=== PATIENT | female | born 1960 | race Caucasian/White ===

== ENCOUNTER 2020-11-15 10:04 | Outpatient (REF) | payer BC, SELFPAY ==
[2020-11-15 11:34] LABS: Glucose Urine UA NEG (NEG); Leukocyte Esterase Urine NEG (NEG); Nitrite Urine NEG (NEG); PH 5.5 (5.0-8.0); Specific Gravity - Urine >= 1.030 (1.005-1.025); Urine Blood NEG (NEG); Urine Ketones NEG (NEG); Urine Protein NEG (NEG-TRACE)
[2020-11-15 11:39] LABS: Appearance Urine CLEAR; Color Urine YELLOW
[2020-11-15 11:51] LABS: Alanine Aminotransferase 33 U/L (0-31); Albumin Level 4.5 g/dL (3.5-5.0); Alkaline Phosphatase 58 U/L (39-117); Anion Gap 13 (12-20); Aspartate Amino Transferase 24 U/L (5-31); Bilirubin Total 0.6 mg/dL (0.0-1.0); Blood Urea Nitrogen 19 mg/dL (9-16); Calcium 9.2 mg/dL (8.4-10.2); Carbon Dioxide 26 mmol/L (22-29); Chloride 105 mmol/L (96-108); Cholesterol 161 mg/dL; Estimated Glomerular Filt Rate > 60; Glucose Fasting 126 mg/dL (60-99); HDL Cholesterol 42 mg/dL; LDL Cholesterol Calculated 88 mg/dl; Potassium 4.4 mmol/L (3.3-5.1); Sodium 140 mmol/L (135-145); Total Protein 7.4 g/dL (6.5-8.0); Triglycerides 157 mg/dL
[2020-11-15 11:54] LABS: Bacteria Urine TRACE /LPF; RBC Urine 0 /HPF (0); Squamous Epithelial Cell Urine 2+ /LPF; WBC Urine 0-2 /HPF (0-4)
[2020-11-15 12:11] LABS: TSH reflex Free T4 1.44 uIU/mL (0.32-4.0)
[2020-11-15 12:12] LABS: Estimated Average Glucose 140 mg/dL; Hemoglobin A1c % 6.5 %
[2020-11-15 12:26] LABS: Creatinine Urine 65.74 mg/dL; Microalbumin Urine < 5.0 mg/L
== END 2020-11-15 10:05 | disposition home or self-care (01) ==
LOC: HO.HMGCLDS 10:04
PROVIDERS: PCP Internal Medicine; Visit Provider Internal Medicine
DX: E03.9 Hypothyroidism, unspecified (principal); I10 Essential (primary) hypertension; E78.5 Hyperlipidemia, unspecified
CPT/HCPCS: 36415; 80053; 80061; 81001; 82043; 83036; 84443

== ENCOUNTER 2021-10-26 09:21 | Outpatient (REF) | payer BC, SELFPAY ==
[2021-10-26 11:44] LABS: Hematocrit 42.4 % (37.0-47.0); Hemoglobin 13.7 g/dl (12.0-16.0); Mean Corpuscular HGB Conc 32.3 g/dl (31.0-35.0); Mean Corpuscular Hemoglobin 29.4 pg (27.0-33.0); Mean Platelet Volume 12.9 fL (9.4-12.3); Platelet Count 230 X10*3/uL (160-400); Red Blood Count 4.66 X10*6/uL (4.20-5.50); Red Cell Distribution Width 13.1 % (11.0-16.0); White Blood Count 7.8 X10*3/uL (4.8-10.8)
[2021-10-26 11:52] LABS: Appearance Urine HAZY; Color Urine YELLOW; Glucose Urine UA NEG (NEG); Leukocyte Esterase Urine NEG (NEG); Nitrite Urine NEG (NEG); Specific Gravity - Urine >= 1.030 (1.005-1.025); Urine Blood NEG (NEG); Urine Ketones NEG (NEG); Urine Protein NEG (NEG-TRACE)
[2021-10-26 12:01] LABS: Estimated Average Glucose 151 mg/dL; Hemoglobin A1c % 6.9 %
[2021-10-26 12:07] LABS: Bacteria Urine TRACE /LPF; RBC Urine 0 /HPF (0); Squamous Epithelial Cell Urine 2+ /LPF; WBC Urine 0-2 /HPF (0-4)
[2021-10-26 12:08] LABS: Calcium Oxalate Crystals Urine 2+ /LPF
[2021-10-26 12:09] LABS: Creatinine Urine 126.93 mg/dL; Microalbum/Creatinine Ratio Ur 5.5 ug/mg cr
[2021-10-26 12:19] LABS: TSH reflex Free T4 6.67 uIU/mL (0.32-4.0)
[2021-10-26 12:21] LABS: Alanine Aminotransferase 34 U/L (0-31); Albumin Level 4.5 g/dL (3.5-5.0); Alkaline Phosphatase 59 U/L (39-117); Anion Gap 13 (12-20); Aspartate Amino Transferase 26 U/L (5-31); Bilirubin Total 0.7 mg/dL (0.0-1.0); Blood Urea Nitrogen 20 mg/dL (9-16); Carbon Dioxide 23 mmol/L (22-29); Chloride 107 mmol/L (96-108); Estimated Glomerular Filt Rate > 60; Glucose Fasting 145 mg/dL (60-99); Potassium 4.2 mmol/L (3.3-5.1); Sodium 139 mmol/L (135-145); Total Protein 7.8 g/dL (6.5-8.0)
[2021-10-26 14:12] LABS: Free T4 (Free Thyroxine) 1.08 ng/dL (0.71-1.85)
== END 2021-10-26 09:22 | disposition home or self-care (01) ==
LOC: HO.HMGCLDS 09:21
PROVIDERS: Visit Provider Internal Medicine
DX: E03.9 Hypothyroidism, unspecified (principal); E78.5 Hyperlipidemia, unspecified; I10 Essential (primary) hypertension; R73.9 Hyperglycemia, unspecified
CPT/HCPCS: 36415; 80053; 81001; 82043; 83036; 84439; 84443; 85027

== ENCOUNTER 2022-01-04 09:24 | Outpatient (REF) | payer BC, SELFPAY ==
[2022-01-04 11:39] LABS: Estimated Average Glucose 146 mg/dL; Hemoglobin A1c % 6.7 %
[2022-01-04 11:56] LABS: Alanine Aminotransferase 42 U/L (0-31); Albumin Level 4.3 g/dL (3.5-5.0); Alkaline Phosphatase 62 U/L (39-117); Anion Gap 12 (12-20); Aspartate Amino Transferase 28 U/L (5-31); Bilirubin Total 0.5 mg/dL (0.0-1.0); Blood Urea Nitrogen 17 mg/dL (9-16); Calcium 9.7 mg/dL (8.4-10.2); Carbon Dioxide 22 mmol/L (22-29); Chloride 107 mmol/L (96-108); Cholesterol 188 mg/dL; Estimated Glomerular Filt Rate > 60; Glucose Fasting 140 mg/dL (60-99); HDL Cholesterol 39 mg/dL; LDL Cholesterol Calculated 112 mg/dl; Potassium 4.3 mmol/L (3.3-5.1); Sodium 137 mmol/L (135-145); Total Protein 7.5 g/dL (6.5-8.0); Triglycerides 188 mg/dL
[2022-01-04 12:02] LABS: TSH reflex Free T4 2.37 uIU/mL (0.32-4.0)
== END 2022-01-04 09:25 | disposition home or self-care (01) ==
LOC: HO.HMGCLDS 09:24
PROVIDERS: PCP Internal Medicine; Visit Provider Internal Medicine
DX: E03.9 Hypothyroidism, unspecified (principal); R73.9 Hyperglycemia, unspecified
CPT/HCPCS: 36415; 80053; 80061; 83036; 84443

== ENCOUNTER 2022-05-03 09:08 | Outpatient (REF) | payer BC, SELFPAY ==
[2022-05-03 11:43] LABS: Estimated Average Glucose 140 mg/dL; Hemoglobin A1c % 6.5 %
[2022-05-03 12:08] LABS: Alanine Aminotransferase 33 U/L (0-31); Albumin Level 4.6 g/dL (3.5-5.0); Alkaline Phosphatase 60 U/L (39-117); Anion Gap 17 (12-20); Aspartate Amino Transferase 26 U/L (5-31); Bilirubin Total 0.6 mg/dL (0.0-1.0); Blood Urea Nitrogen 24 mg/dL (9-16); Calcium 9.8 mg/dL (8.4-10.2); Carbon Dioxide 22 mmol/L (22-29); Chloride 104 mmol/L (96-108); Cholesterol 192 mg/dL; Estimated Glomerular Filt Rate > 60; Glucose Fasting 135 mg/dL (60-99); HDL Cholesterol 44 mg/dL; LDL Cholesterol Calculated 112 mg/dl; Potassium 4.1 mmol/L (3.3-5.1); Sodium 139 mmol/L (135-145); Total Protein 7.5 g/dL (6.5-8.0); Triglycerides 183 mg/dL
== END 2022-05-03 09:09 | disposition home or self-care (01) ==
LOC: HO.HMGCLDS 09:08
PROVIDERS: PCP Internal Medicine; Visit Provider Internal Medicine
DX: E11.9 Type 2 diabetes mellitus without complications (principal); I10 Essential (primary) hypertension; E78.5 Hyperlipidemia, unspecified
CPT/HCPCS: 36415; 80053; 80061; 83036

== ENCOUNTER 2022-06-09 09:34 | Day surgery (SDC) | payer BC, SELFPAY ==
--- NOTE | 2022-06-08 14:01 | P.CONAN_ITS ---
Documented by User: Michelle Wiggins NP 06/08/22 14:02 HPI - Anesthesia Eval Consult details Narrative: 61yo F for Colonoscopy PMFSH Active Problems Active Problems: All Active Problems (Updated 02/24/22 @ 13:00 by Rocío Eastman MD) DM2 (diabetes mellitus, type 2) (Acute) Encounter for screening colonoscopy (Acute) Normal pelvic exam (Acute) Annual physical exam (Acute) Hyperglycemia (Acute) Hyperlipidemia (Acute) HTN (hypertension) (Acute) Hypothyroidism, unspecified (Acute) Past Medical History Medical History (Updated 06/09/22 @ 09:50 by Lynn Levy, RN) Annual physical exam Diabetes HTN (hypertension) Hyperglycemia Hyperlipidemia Normal pelvic exam Stress incontinence Thyroid disease Family History Family History Mother No problems noted. Surgical History Surgical History H/O colonoscopy Social History Social History Housing: House Alcohol intake: never Patient Tobacco Use Status: Never used Tobacco e-Cigarette/Vaping Use: Never Used Use of substances other than those prescribed or required for medical reasons: No Are you DNR?: No Advance Directives: No Advance Directives Information Provided: Yes Current occupational status: employed Cognitive needs: No Hearing needs: No Vision needs: Yes Meds Allergies Allergy/AdvReac Type Severity Reaction Status Date / Time No Known Allergies Allergy Verified 06/09/22 09:47 Exam Exam Date and Time: June 08, 2022 1401 Pertinent Lab Results Pertinent Lab Results: Laboratory Tests 10/26/21 05/03/22 09:29 09:14 WBC 7.8 Hgb 13.7 Hct 42.4 Plt Count 230 Sodium 139 Potassium 4.1 Chloride 104 Carbon Dioxide 22 BUN 24 H Creatinine 0.83 Assessment and Plan Assessment Anesthesia Assessment: Chart Reviewed Documented by User: Malina Stone MD 06/09/22 09:57 [facility] Past Medical History Medical History (Updated 06/09/22 @ 09:50 by Lynn Levy, RN) Annual physical exam Diabetes HTN (hypertension) Hyperglycemia Hyperlipidemia Normal pelvic exam Stress incontinence Thyroid disease Family History Family History Mother No problems noted. Family history of problems with anesthesia: No Surgical History Surgical History H/O colonoscopy History of Problems with Anesthesia: No Social History Social History Housing: House Alcohol intake: never Patient Tobacco Use Status: Never used Tobacco e-Cigarette/Vaping Use: Never Used Use of substances other than those prescribed or required for medical reasons: No Are you DNR?: No Advance Directives: No Advance Directives Information Provided: Yes Current occupational status: employed Cognitive needs: No Hearing needs: No Vision needs: Yes Meds Allergies Allergy/AdvReac Type Severity Reaction Status Date / Time No Known Allergies Allergy Verified 06/09/22 09:47 Exam Airway Mallampati Class: II TM Dist: >3cm Neck ROM: Full Heart: rrr Lungs: cta Assessment and Plan Assessment Anesthesia Assessment: Anesthesia Plan Discussed Final Anesthetic Review Family History of Problems with Anesthesia: No History of Problems with Anesthesia: No NPO: Yes ASA Class: II Final Preanesthetic Review: No Changes in Pt Med Stat, Meds/Allgs Chart Reviewed and Consent Obtained/Reviewed Patient Risk: Intermediate Procedure Risk: Intermediate Anesthetic Plan Anesthetic Plan: MAC: Disposition: Standard PACU
[2022-06-09 09:40] VITALS: BMI 32.9
[2022-06-09 09:51] VITALS: BP 146/75; PULSE 67; RESP 15; TEMP 36.7; O2SAT 95
--- NOTE | 2022-06-09 10:03 | MHC.SHP ---
Pre-Procedural Eval Section A Date of Service: 06/09/22 The patient is an INPATIENT: No The History & Physical has been completed within 30 days and I have reviewed it.: No Section B Chief Complaint: screening Details of Present Illness: colon cancer screening Relevant Family History (Specify if Yes): No Relevant Social History: None Present Medications: see Short Stay Collaborative assessment Medical History: Significant History (Hyperglycemia Hyperlipidemia Normal pelvic exam Stress incontinence) History of Previous Operations: Relevant previous surgery/procedure and date(s) ( history of colonoscopy) Allergies: Allergies Allergy/AdvReac Type Severity Reaction Status Date / Time No Known Allergies Allergy Verified 06/09/22 09:47 Review of Systems Sugical H&P ROS: Negative: Constitution, Cardiovascular, Respiratory and Gastrointestinal Exam Surgical H&P Exam: Normal: Heart, Normal: Lungs, Normal: Extremities and Normal: Abdomen Plan Diagnosis/Plan: Unchanged I have reviewed the history and physical and performed a pertinent physical examination on my patient. No changes have occurred unless specified.
--- NOTE | 2022-06-09 10:04 | PM.OP ---
Brief Operative Note Date of Service: 06/09/22 Pre-op diagnosis: colon cancer screening Post-op diagnosis: other ( colon polyp, diverticulosis, hemorrhoids) Procedure: COLONOSCOPY TO CECUM WITH SNARE POLYPECTOMY Surgeon: Angela Cruz MD Anesthesia: MAC Was an Manufacturing Engineer Chief used for this Procedure?: Yes Manufacturing Engineer Chief: Giuliano Parker Estimated blood loss (mL): 0 Pathology: other (A- TRANSVERSE COLO POLYP) Condition: stable Disposition: PACU
--- NOTE | 2022-06-09 10:04 | W.PM.OPN ---
Operative Note Operative Note Date of Service: 06/09/22 Narrative: Pre-op diagnosis: colon cancer screening Post-op diagnosis:?other ( colon polyp, diverticulosis, hemorrhoids) Surgeon: Angela Cruz MD Anesthesia:?MAC COLONOSCOPY TILL CECUM WITH SNARE POLYPECTOMY Consent: Indications for the procedure and potential complications of bleeding, perforation, reaction to medications and missed diagnosis were discussed with the patient and informed consent was obtained. Instrument: Olympus PCF H 190 L variable stiffness pediatric colonoscope Monitoring: Vital signs and clinical assessment, intermittent blood pressure monitoring, continuous EKG monitoring, Pulse oximetry and Carbon Dioxide monitoring were done throughout the procedure. Colon withdrawl time was 13 minutes. Procedure: The patient was placed in the left lateral decubitis position and pre-procedure medications were administered. After a digital rectal examination of the ano-rectum, the video colonoscope was inserted into the rectum and advanced through the colon to the cecum. The colonoscope was slowly withdrawn in a retrograde panoramic fashion and the colon mucosa was carefully examined including a retroflexed view of the rectum. Findings and interventions are described below. Procedure Difficulty: Without difficulty Findings: Terminal Ileum: Not evaluated Cecum: Normal Ascending Colon: Normal Transverse Colon: A 5-6 mm sessile polyp - removed with a cold snare Descending Colon: Normal Sigmoid Colon: Moderate diverticulosis Rectum: Normal Ano-rectum: Moderate internal hemorrhoids and perianal skin tags Colon preparation: Good Impression and Post Procedure Diagnosis: Colonoscopy Findings: One small polyp removed Moderate diverticulosis seen in the sigmoid colon Moderate hemorrhoids on retroflexed exam. Plan: Await pathology results Patient has an appointment on 06/22/22 in the [facility] with KIRAN Moya . Repeat Colonoscopy interval based on path results - in 5 years if polyps are adenomatous and 10 years if polyps are hyperplastic. Colon polyps and diverticulosis handouts were given in the discharge area
[2022-06-09 10:07] LABS: Glucose, Whole Blood 135 mg/dL (60-115)
[2022-06-09] MEDS: Lactated Ringers 1,000 ML 100 ML IVCONT (10:25)
[2022-06-09 11:34] VITALS: BP 101/59; PULSE 95; RESP 16; TEMP 36.6; O2SAT 95
[2022-06-09 11:49] VITALS: BP 106/63; PULSE 67; RESP 18; TEMP 37.1; O2SAT 96
== END 2022-06-09 12:36 | disposition home or self-care (01) ==
PROVIDERS: PCP Internal Medicine; Visit Provider Internal Medicine Gastroenterology
PROC: 0DJD8ZZ Inspection of Lower Intestinal Tract, Via Natural or Artificial Opening Endoscopic (ICD-10-PCS; CPT 45378; principal; 2022-06-09 10:10)
DX: Z12.11 Encounter for screening for malignant neoplasm of colon (principal); D12.3 Benign neoplasm of transverse colon; K57.30 Diverticulosis of large intestine without perforation or abscess without bleeding; K64.8 Other hemorrhoids; K64.4 Residual hemorrhoidal skin tags; I10 Essential (primary) hypertension; E78.5 Hyperlipidemia, unspecified; E03.9 Hypothyroidism, unspecified; E11.65 Type 2 diabetes mellitus with hyperglycemia; N39.3 Stress incontinence (female) (male); Z79.84 Long term (current) use of oral hypoglycemic drugs; Z79.899 Other long term (current) drug therapy
CPT/HCPCS: 45385; 82947; 88305

== ENCOUNTER 2022-07-26 09:12 | Outpatient (REF) | payer BC, SELFPAY ==
[2022-07-26 11:49] LABS: Estimated Average Glucose 128 mg/dL; Hemoglobin A1c % 6.1 %
[2022-07-26 12:01] LABS: Alanine Aminotransferase 33 U/L (0-31); Albumin Level 4.5 g/dL (3.5-5.0); Alkaline Phosphatase 63 U/L (39-117); Anion Gap 13 (12-20); Aspartate Amino Transferase 24 U/L (5-31); Bilirubin Total 0.6 mg/dL (0.0-1.0); Blood Urea Nitrogen 19 mg/dL (9-16); Carbon Dioxide 26 mmol/L (22-29); Chloride 103 mmol/L (96-108); Cholesterol 172 mg/dL; Estimated Glomerular Filt Rate > 60; Glucose Fasting 118 mg/dL (60-99); HDL Cholesterol 37 mg/dL; LDL Cholesterol Calculated 97 mg/dl; Potassium 4.2 mmol/L (3.3-5.1); Sodium 138 mmol/L (135-145); Total Protein 7.5 g/dL (6.5-8.0); Triglycerides 192 mg/dL
[2022-07-26 12:11] LABS: Creatinine Urine 130.03 mg/dL; Microalbum/Creatinine Ratio Ur 5.3 ug/mg cr
== END 2022-07-26 09:13 | disposition home or self-care (01) ==
LOC: HO.HMGCLDS 09:12
PROVIDERS: PCP Internal Medicine; Visit Provider Internal Medicine
DX: E11.9 Type 2 diabetes mellitus without complications (principal); E78.5 Hyperlipidemia, unspecified; I10 Essential (primary) hypertension
CPT/HCPCS: 36415; 80053; 80061; 82043; 83036

== ENCOUNTER 2022-10-31 09:48 | Outpatient (REF) | payer BC, SELFPAY ==
[2022-10-31 11:44] LABS: MANUAL DIFF FLAG NO
[2022-10-31 12:01] LABS: Basophils Absolute Auto 0.1 X10*3/uL (0.0-0.2); Basophils Percent Auto 1.1 % (0-2); Eosinophils Absolute Auto 0.2 X10*3/uL (0.0-0.4); Eosinophils Percent Auto 3.2 % (0-4); Hemoglobin 13.3 g/dl (12.0-16.0); Imm Gran Abs Auto 0.01 X10*3/uL (0.00-0.03); Imm Gran Pct Auto 0.1 % (0.0-0.4); Lymphocytes Absolute Auto 2.2 X10*3/uL (1.2-4.9); Lymphocytes Percent Auto 30.6 % (20-40); Mean Corpuscular HGB Conc 32.4 g/dl (31.0-35.0); Mean Corpuscular Hemoglobin 29.4 pg (27.0-33.0); Mean Corpuscular Volume 90.7 fL (80.0-98.0); Mean Platelet Volume 11.9 fL (9.4-12.3); Monocytes Absolute Auto 0.5 X10*3/uL (0.1-1.2); Monocytes Percent Auto 6.2 % (2-11); Neutrophils Absolute Auto 4.3 x10*3/uL (2.0-8.3); Neutrophils Percent Auto 58.8 % (45-73); Platelet Count 234 X10*3/uL (160-400); Red Blood Count 4.52 X10*6/uL (4.20-5.50); Red Cell Distribution Width 12.7 % (11.0-16.0); White Blood Count 7.2 X10*3/uL (4.8-10.8)
[2022-10-31 12:15] LABS: Estimated Average Glucose 134 mg/dL; Hemoglobin A1c % 6.3 %
[2022-10-31 13:10] LABS: Alanine Aminotransferase 35 U/L (0-31); Albumin Level 4.3 g/dL (3.5-5.0); Alkaline Phosphatase 60 U/L (39-117); Anion Gap 15 (12-20); Aspartate Amino Transferase 28 U/L (5-31); Bilirubin Total 0.6 mg/dL (0.0-1.0); Blood Urea Nitrogen 17 mg/dL (9-16); Calcium 9.7 mg/dL (8.4-10.2); Carbon Dioxide 22 mmol/L (22-29); Chloride 107 mmol/L (96-108); Cholesterol 164 mg/dL; Estimated Glomerular Filt Rate > 60; Glucose Fasting 105 mg/dL (60-99); HDL Cholesterol 38 mg/dL; LDL Cholesterol Calculated 92 mg/dl; Potassium 4.4 mmol/L (3.3-5.1); Sodium 140 mmol/L (135-145); Triglycerides 174 mg/dL
[2022-10-31 13:12] LABS: TSH reflex Free T4 2.32 uIU/mL (0.32-4.0)
[2022-10-31 13:23] LABS: Creatinine Urine 107.12 mg/dL; Microalbum/Creatinine Ratio Ur 5.6 ug/mg cr
== END 2022-10-31 09:49 | disposition home or self-care (01) ==
LOC: HO.HMGCLDS 09:48
PROVIDERS: PCP Internal Medicine; Visit Provider Internal Medicine
DX: E03.9 Hypothyroidism, unspecified (principal); E11.9 Type 2 diabetes mellitus without complications; I10 Essential (primary) hypertension
CPT/HCPCS: 36415; 80053; 80061; 82043; 83036; 84443; 85025

== ENCOUNTER 2023-02-08 08:48 | Outpatient (REF) | payer BC, SELFPAY ==
--- NOTE | ~2023-02-08 | US_ITS ---
EXAMINATION: US THYROID CLINICAL INFORMATION: Hypothyroidism, unspecified. COMPARISON: None available. TECHNIQUE: Linear transducer grayscale and color Doppler examination with attention to the region of the thyroid. FINDINGS: SIZE: Measurements of the thyroid lobes and nodules are given in sagittal, anteroposterior and transverse dimensions respectively. Right Thyroid Lobe: 3.6 x 1.1 x 0.9 cm, volume 1.9 mL. Parenchyma: The gland echotexture is heterogeneous. Thyroid vascularity is normal. Left Thyroid Lobe: 3.6 x 1.1 x 1.3 cm, volume 2.7 mL. Parenchyma: The gland echotexture is heterogeneous. Thyroid vascularity is normal. Isthmus: 0.3 cm in maximum AP dimension. No focal thyroid nodule is seen. NODES: Left level 2 cervical lymph node measures 1.0 x 0.5 x 0.7 cm. US/US thyroid IMPRESSION: No significant thyroid nodule. ACR TI-RADS RECOMMENDATION REFERENCE: Ultrasound-guided fine-needle aspiration, followup ultrasound, no further follow up. * TR1 (0 point) and TR2 (2 points): No FNA or follow up. * TR3 (3 points): FNA if more than or equal to 2.5 cm in maximum dimension, followup ultrasound in 1, 3 and 5 years if 1.5 to 2.4 cm in maximum dimension. * TR4 (4-6 points): FNA if more than or equal to 1.5 cm in maximum dimension, followup ultrasound in 1, 2, 3 and 5 years if 1 to 1.4 cm in maximum dimension. * TR5 (more than or equal to 7 points): FNA if more than or equal to 1 cm in maximum dimension, followup ultrasound every year for 5 years if 0.5 to 0.9 cm in maximum dimension. * TR3, TR4 or TR5 nodules that are below the size threshold for followup receive no follow up.
== END 2023-02-08 08:49 | disposition home or self-care (01) ==
LOC: HO.HMGCX 08:48
PROVIDERS: PCP Internal Medicine; Visit Provider Internal Medicine
DX: E03.9 Hypothyroidism, unspecified (principal); E04.9 Nontoxic goiter, unspecified; E11.9 Type 2 diabetes mellitus without complications; E78.5 Hyperlipidemia, unspecified
CPT/HCPCS: 36415; 76536; 80053; 80061; 83036

== ENCOUNTER 2023-02-20 09:49 | Outpatient (AMB) | payer BC, SELFPAY ==
--- NOTE | 2023-02-20 09:52 | A.OFFPC_ITS ---
Vital Signs 02/20/23 09:53 Height 5 ft 4 in Weight 190 lb BMI 32.6 BP 120/68 Blood Pressure Location Rt brachial Position Sitting Pulse 83 Pulse Source Pulse Oximeter Pulse Oximetry (%) 95 Oxygen Delivery Method Room Air Intake Visit Reasons: 4m follow up DM Intake Note: Pt is here today for 4 months follow up visit on labs. Allergies No Known Allergies Allergy (Verified 02/20/23 10:02) Medication List - Last Reconciled 02/20/23 by Rocío Eastman MD blood sugar diagnostic ([employer] Ultra Test strips) 1 QD blood-glucose meter ([employer] Ultra2 Meter) As directed dapagliflozin propanediol (Farxiga) 5 mg PO DAILY fenofibrate 160 mg PO DAILY hydrocortisone-pramoxine 1-1 % (Proctofoam HC) 1 appl [place] DAILY PRN lancets ([employer] Delica Plus Lancet) 1 qd levothyroxine 100 mcg PO DAILY lisinopril 10 mg PO DAILY metformin ER 1,500 mg (2 x 750 mg) PO DAILY methylcellulose (laxative) (Citrucel Sugar Free oral powder) 2 grams PO DAILY PRN Tobacco use date assessed: 10/31/22 Dental Screening Dental Screen Date: 02/20/23 Did you have a dental visit in the last 12 months?: Yes Did you have a dental problem in the last 6 months where you did not have access to dental care?: No Was dental information given to patient?: Patient has dentist HPI 4m follow up DM HPI Details Pt presents for f/u DM2, hyperlipid, HTN, stable on meds. [facility] Medical History (Updated 02/20/23 @ 10:48 by Rocío Eastman MD) Annual physical exam Diabetes HTN (hypertension) Hyperglycemia Hyperlipidemia Normal pelvic exam Stress incontinence Thyroid disease Surgical History H/O colonoscopy Family History Mother No problems noted. Social History Housing: House Alcohol intake: never Patient Tobacco Use Status: Never used Tobacco e-Cigarette/Vaping Use: Never Used Current occupational status: employed Cognitive needs: No Hearing needs: No Vision needs: Yes Questionnaire Thrive Questionnaire Date Thrive assessed: 10/31/22 HAJA-7 AMB Questionnaire HAJA-7 Date HAJA - 7 assessed: 10/31/22 Source: Developed by Drs. Esau Shipman, Dahiana Diaz, Dmitriy Bridges and colleagues, with an educational milton from [employer]. Review of Systems Const All systems reviewed & are unremarkable except as noted in HPI and below Reports no additional complaints Eyes Reports no additional complaints ENT Reports no additional complaints Card Reports no additional complaints Resp Reports no additional complaints GI Reports no additional complaints Reports no additional complaints Physical exam (Primary Care) Vital Signs: Last Vital Signs Pulse 83 02/20/23 09:53 BP 120/68 02/20/23 09:53 Pulse Ox 95 02/20/23 09:53 Oxygen Delivery Method Room Air 02/20/23 09:53 BMI result Body Mass Index 32.6 Tobacco/Smoking Status: Tobacco use Status Tobacco use date assessed 10/31/22 02/20/23 09:54 Patient Tobacco Use Status Never used Tobacco 02/20/23 09:54 e-Cigarette/Vaping Use Never Used 02/20/23 09:54 Thrive Assessment: Date of Thrive Assessment Date Thrive assessed 10/31/22 02/20/23 09:54 Const General: no acute distress HENMT Ears: hearing grossly normal bilaterally Throat: Yes posterior oropharynx normal Eyes General: appearance normal, both eyes and all related structures Neck Neck: Yes no lymphadenopathy and Yes supple Resp Effort & Inspection: normal respiratory effort Auscultation: clear to auscultation bilaterally Cardio Rhythm: regular rhythm Heart sounds: S1 normal heart sound present and S2 normal heart sound present GI Inspection: Yes normal to inspection Palpation (GI): Soft to palpation Percussion: Yes normal to percussion Auscultation: normal bowel sounds Assessment and Plan Assessment & Plan (1) DM2 (diabetes mellitus, type 2): Code(s): E11.9 - Type 2 diabetes mellitus without complications Plan: A1c is 6.2. ADA diet increase exercise weight loss discussed with the patient Farxiga 5 mg daily will be added and patient will continue metformin. She will return in 4 months with a fasting labs (2) Hyperlipidemia: Code(s): E78.5 - Hyperlipidemia, unspecified Plan: Continue current medications (3) Annual physical exam: Code(s): Z00.00 - Encounter for general adult medical examination without abnormal findings (4) HTN (hypertension): Code(s): I10 - Essential (primary) hypertension Plan: Continue lisinopril (5) Hypothyroidism, unspecified: Code(s): E03.9 - Hypothyroidism, unspecified Plan: Continue levothyroxine. Return for physical in 4 months Orders: Orders Comprehensive [place]. Panel Fast 4 Months E11.9 - Type 2 diabetes mellitus without complications, E78.5 - Hyperlipidemia, unspecified, I10 - Essential (primary) hypertension, Z00.00 - Encounter for general adult medical examination without abnormal findings Hemoglobin A1c 4 Months E11.9 - Type 2 diabetes mellitus without complications, E78.5 - Hyperlipidemia, unspecified, I10 - Essential (primary) hypertension, Z00.00 - Encounter for general adult medical examination without abnormal findings Lipid Panel 4 Months E11.9 - Type 2 diabetes mellitus without complications, E78.5 - Hyperlipidemia, unspecified, I10 - Essential (primary) hypertension, Z00.00 - Encounter for general adult medical examination without abnormal findings TSH reflex Free T4 4 Months E11.9 - Type 2 diabetes mellitus without complications, E78.5 - Hyperlipidemia, unspecified, I10 - Essential (primary) hypertension, Z00.00 - Encounter for general adult medical examination without abnormal findings Microalbumin, Random (w Creat) 4 Months E11.9 - Type 2 diabetes mellitus without complications, E78.5 - Hyperlipidemia, unspecified, I10 - Essential (primary) hypertension, Z00.00 - Encounter for general adult medical examination without abnormal findings Medications: New dapagliflozin propanediol (Farxiga) 5 mg PO DAILY 90 tabs 1RF Coding Level of Care Code Est Pt Level 4 (99232) Diagnoses DM2 (diabetes mellitus, type 2) E11.9 Hyperlipidemia E78.5 Annual physical exam Z00.00 HTN (hypertension) I10 Hypothyroidism, unspecified E03.9
[2023-02-20 09:53] VITALS: BP 120/68; PULSE 83; O2SAT 95; BMI 32.6
== END 2023-02-20 10:51 | disposition home or self-care (01) ==
PROVIDERS: Visit Provider Internal Medicine
DX: E11.69 Type 2 diabetes mellitus with other specified complication (principal); I10 Essential (primary) hypertension; E03.9 Hypothyroidism, unspecified; E78.5 Hyperlipidemia, unspecified
CPT/HCPCS: 99214

== ENCOUNTER 2023-06-14 09:35 | Outpatient (REF) | payer BC, SELFPAY ==
[2023-06-14 11:33] LABS: Estimated Average Glucose 137 mg/dL; Hemoglobin A1c % 6.4 % (<6.0)
[2023-06-14 12:02] LABS: Creatinine Urine 75.18 mg/dL; Microalbumin Urine < 5.0 mg/L
[2023-06-14 12:12] LABS: Alanine Aminotransferase 41 U/L (0-31); Albumin Level 4.4 g/dL (3.5-5.0); Alkaline Phosphatase 64 U/L (39-117); Anion Gap 12 (12-20); Aspartate Amino Transferase 37 U/L (5-31); Bilirubin Total 0.7 mg/dL (0.0-1.0); Blood Urea Nitrogen 16 mg/dL (9-16); Calcium 9.5 mg/dL (8.4-10.2); Carbon Dioxide 28 mmol/L (22-29); Chloride 102 mmol/L (96-108); Cholesterol 183 mg/dL (<200); Estimated Glomerular Filt Rate > 60; Glucose Fasting 125 mg/dL (60-99); HDL Cholesterol 42 mg/dL (>40); LDL Cholesterol Calculated 115 mg/dL (<100); Potassium 3.8 mmol/L (3.3-5.1); Sodium 138 mmol/L (135-145); Total Protein 7.6 g/dL (6.5-8.0); Triglycerides 132 mg/dL (<150)
== END 2023-06-14 09:36 | disposition home or self-care (01) ==
LOC: HO.HMGCLDS 09:35
PROVIDERS: PCP Internal Medicine; Visit Provider Internal Medicine
DX: Z00.00 Encounter for general adult medical examination without abnormal findings (principal); E11.9 Type 2 diabetes mellitus without complications; E78.5 Hyperlipidemia, unspecified; I10 Essential (primary) hypertension
CPT/HCPCS: 36415; 80053; 80061; 82043; 82570; 83036; 84443

== ENCOUNTER 2023-06-21 08:14 | Outpatient (AMB) | payer BC, SELFPAY ==
--- NOTE | 2023-06-21 08:17 | MHC.PC.OV ---
Vital Signs 06/21/23 08:20 Height 5 ft 4 in Weight 195 lb BMI 33.5 BP 126/60 Blood Pressure Location Rt brachial Position Sitting Pulse 75 Pulse Source Pulse Oximeter Pulse Oximetry (%) 98 Oxygen Delivery Method Room Air Intake Visit Reasons: PE Allergies No Known Allergies Allergy (Verified 06/21/23 08:20) Medication List - Last Reconciled 06/21/23 by Rocío Eastman MD blood sugar diagnostic ([employer] Ultra Test strips) 1 QD blood-glucose meter ([employer] Ultra2 Meter) As directed dapagliflozin propanediol (Farxiga) 5 mg PO DAILY Farxiga (dapagliflozin propanediol) 10 mg PO DAILY NS fenofibrate 160 mg PO DAILY hydrocortisone-pramoxine 1-1 % (Proctofoam HC) 1 appl [place] DAILY PRN lancets ([employer] Delica Plus Lancet) 1 qd levothyroxine 100 mcg PO DAILY lisinopril 10 mg PO DAILY metformin ER 1,500 mg (2 x 750 mg) PO DAILY methylcellulose (laxative) ([employer] Sugar Free oral powder) 2 grams PO DAILY PRN Tobacco use date assessed: 10/31/22 Dental Screening Dental Screen Date: 06/21/23 Did you have a dental visit in the last 12 months?: Yes Did you have a dental problem in the last 6 months where you did not have access to dental care?: No Was dental information given to patient?: Patient has dentist HPI PE HPI Details Pt presents for PE. PFSH Medical History Diabetes Thyroid disease HTN (hypertension) Normal pelvic exam Annual physical exam Hyperglycemia Stress incontinence Hyperlipidemia Surgical History H/O colonoscopy Family History Mother No problems noted. Social History Housing: House Alcohol intake: never Patient Tobacco Use Status: Never used Tobacco e-Cigarette/Vaping Use: Never Used Current occupational status: employed Cognitive needs: No Hearing needs: No Vision needs: Yes Questionnaire Thrive Questionnaire Date Thrive assessed: 10/31/22 AUDIT C Alcohol Use Questionnaire (AUDIT-C) 1. How often do you have a drink containing alcohol?: Never 3. How often do you have six or more drinks on one occasion?: Never Total Score: 0 Score Reviewed/Action Taken: No HAJA-7 AMB Questionnaire HAJA-7 Date HAJA - 7 assessed: 10/31/22 Source: Developed by Drs. Esau Shipman, Dahiana Diaz, Dmitriy Bridges and colleagues, with an educational milton from [employer]. Review of Systems Const All systems reviewed & are unremarkable except as noted in HPI and below Reports no additional complaints Eyes Reports no additional complaints ENT Reports no additional complaints Card Reports no additional complaints Resp Reports no additional complaints GI Reports no additional complaints Reports no additional complaints Physical exam (Primary Care) Vital Signs: Last Vital Signs Pulse 75 06/21/23 08:20 BP 126/60 06/21/23 08:20 Pulse Ox 98 06/21/23 08:20 Oxygen Delivery Method Room Air 06/21/23 08:20 BMI result Body Mass Index 33.5 Tobacco/Smoking Status: Tobacco use Status Tobacco use date assessed 10/31/22 06/21/23 08:19 Patient Tobacco Use Status Never used Tobacco 06/21/23 08:19 e-Cigarette/Vaping Use Never Used 06/21/23 08:19 Thrive Assessment: Date of Thrive Assessment Date Thrive assessed 10/31/22 06/21/23 08:19 Const General: no acute distress HENMT Head: Yes normal to inspection Ears: hearing grossly normal bilaterally Face and sinus: Yes normal facial exam Throat: Yes posterior oropharynx normal Eyes General: appearance normal, both eyes and all related structures Neck Neck: Yes no lymphadenopathy and Yes supple Resp Effort & Inspection: normal respiratory effort Auscultation: clear to auscultation bilaterally Cardio Rhythm: regular rhythm Heart sounds: S1 normal heart sound present and S2 normal heart sound present GI Inspection: Yes normal to inspection Palpation (GI): Soft to palpation Percussion: Yes normal to percussion Auscultation: normal bowel sounds Extrem General: Yes no clubbing, cyanosis or edema Assessment and Plan Assessment & Plan (1) Hypothyroidism, unspecified: Code(s): E03.9 - Hypothyroidism, unspecified Plan: Continue levothyroxine (2) HTN (hypertension): Code(s): I10 - Essential (primary) hypertension Plan: Continue current medications (3) DM2 (diabetes mellitus, type 2): Code(s): E11.9 - Type 2 diabetes mellitus without complications Plan: A1c is 6.4, ADA diet increase exercise loss discussed with the patient increase Farxiga to 10 mg a day follow-up in 4 months with a fasting labs before (4) Annual physical exam: Code(s): Z00.00 - Encounter for general adult medical examination without abnormal findings Plan: Well-balanced diet regular exercise and weight loss discussed with the patient. she is up-to-date with mammogram and colonoscopy (5) Normal pelvic exam: Comment: 11/2018, 06/27 Code(s): Z01.419 - Encounter for gynecological examination (general) (routine) without abnormal findings Orders: Orders Lipid Panel 4 Months E03.9 - Hypothyroidism, unspecified, E11.9 - Type 2 diabetes mellitus without complications, I10 - Essential (primary) hypertension, Z00.00 - Encounter for general adult medical examination without abnormal findings, Z01.419 - Encounter for gynecological examination (general) (routine) without abnormal findings Comprehensive [place]. Panel Fast 4 Months E03.9 - Hypothyroidism, unspecified, E11.9 - Type 2 diabetes mellitus without complications, I10 - Essential (primary) hypertension, Z00.00 - Encounter for general adult medical examination without abnormal findings, Z01.419 - Encounter for gynecological examination (general) (routine) without abnormal findings Microalbumin, Random (w Creat) 4 Months E03.9 - Hypothyroidism, unspecified, E11.9 - Type 2 diabetes mellitus without complications, I10 - Essential (primary) hypertension, Z00.00 - Encounter for general adult medical examination without abnormal findings, Z01.419 - Encounter for gynecological examination (general) (routine) without abnormal findings Hemoglobin A1c 4 Months E03.9 - Hypothyroidism, unspecified, E11.9 - Type 2 diabetes mellitus without complications, I10 - Essential (primary) hypertension, Z00.00 - Encounter for general adult medical examination without abnormal findings, Z01.419 - Encounter for gynecological examination (general) (routine) without abnormal findings TSH reflex Free T4 4 Months E03.9 - Hypothyroidism, unspecified, E11.9 - Type 2 diabetes mellitus without complications, I10 - Essential (primary) hypertension, Z00.00 - Encounter for general adult medical examination without abnormal findings, Z01.419 - Encounter for gynecological examination (general) (routine) without abnormal findings Medications: New Farxiga (dapagliflozin propanediol) 10 mg PO DAILY 90 tabs 3RF NS Discontinued dapagliflozin propanediol (Farxiga) Discontinued Reason: Doctor's Order 5 mg PO DAILY 90 tabs 1RF Coding Level of Care Code Est Pt Prev Care 40-64y(80357) Diagnoses Hypothyroidism, unspecified E03.9 HTN (hypertension) I10 DM2 (diabetes mellitus, type 2) E11.9 Annual physical exam Z00.00 Normal pelvic exam Z01.419
[2023-06-21 08:20] VITALS: BP 126/60; PULSE 75; O2SAT 98; BMI 33.5
== END 2023-06-21 08:51 | disposition home or self-care (01) ==
LOC: HO.HMGC 08:14
PROVIDERS: PCP Internal Medicine; Visit Provider Internal Medicine
DX: E03.9 Hypothyroidism, unspecified (principal); I10 Essential (primary) hypertension; E11.9 Type 2 diabetes mellitus without complications; Z00.00 Encounter for general adult medical examination without abnormal findings; Z01.419 Encounter for gynecological examination (general) (routine) without abnormal findings
CPT/HCPCS: 99396

== ENCOUNTER 2023-10-18 10:01 | Outpatient (REF) | payer BC, SELFPAY ==
[2023-10-18 13:40] LABS: Estimated Average Glucose 146 mg/dL; Hemoglobin A1c % 6.7 % (<6.0)
[2023-10-18 13:54] LABS: Alanine Aminotransferase 32 U/L (0-31); Albumin Level 4.4 g/dL (3.5-5.0); Alkaline Phosphatase 66 U/L (39-117); Anion Gap 15 (12-20); Aspartate Amino Transferase 28 U/L (5-31); Bilirubin Total 0.5 mg/dL (0.0-1.0); Blood Urea Nitrogen 21 mg/dL (9-16); Calcium 9.8 mg/dL (8.4-10.2); Carbon Dioxide 23 mmol/L (22-29); Chloride 106 mmol/L (96-108); Cholesterol 187 mg/dL (<200); Estimated Glomerular Filt Rate > 60; Glucose Fasting 130 mg/dL (60-99); HDL Cholesterol 43 mg/dL (>40); LDL Cholesterol Calculated 116 mg/dL (<100); Potassium 4.2 mmol/L (3.3-5.1); Sodium 140 mmol/L (135-145); Total Protein 7.7 g/dL (6.5-8.0); Triglycerides 142 mg/dL (<150)
[2023-10-18 14:05] LABS: Creatinine Urine 77.31 mg/dL; Microalbumin Urine < 5.0 mg/L
[2023-10-18 14:12] LABS: TSH reflex Free T4 5.38 uIU/mL (0.32-4.0)
[2023-10-18 14:45] LABS: Free T4 (Free Thyroxine) 1.02 ng/dL (0.71-1.85)
== END 2023-10-18 10:02 | disposition home or self-care (01) ==
LOC: HO.HMGCLDS 10:01
PROVIDERS: PCP Internal Medicine; Visit Provider Internal Medicine
DX: Z00.00 Encounter for general adult medical examination without abnormal findings (principal); E11.9 Type 2 diabetes mellitus without complications; E03.9 Hypothyroidism, unspecified; I10 Essential (primary) hypertension
CPT/HCPCS: 36415; 80053; 80061; 82043; 82570; 83036; 84439; 84443

== ENCOUNTER 2023-10-25 07:34 | Outpatient (AMB) | payer BC, SELFPAY ==
--- NOTE | 2023-10-25 07:47 | MHC.PC.OV ---
Vital Signs 10/25/23 07:50 Height 5 ft 4 in Weight 193 lb BMI 33.1 BP 124/70 Blood Pressure Location Lt brachial Position Sitting Pulse 66 Pulse Source Pulse Oximeter Pulse Oximetry (%) 95 Oxygen Delivery Method Room Air Intake Visit Reasons: 4 month fu Intake Note: Pt is here today for her 4mo. f/u Allergies No Known Allergies Allergy (Verified 10/25/23 07:50) Medication List - Last Reconciled 10/25/23 by Rocío Eastman MD blood sugar diagnostic (CoinEx.pwTouch Ultra Test strips) 1 QD blood-glucose meter (Expediciones.mxuch Ultra2 Meter) As directed Farxiga (dapagliflozin propanediol) 10 mg PO DAILY NS fenofibrate 160 mg PO DAILY lancets (OneTouch Delica Plus Lancet) 1 qd levothyroxine 112 mcg PO DAILY lisinopril 10 mg PO DAILY metformin ER 1,500 mg (2 x 750 mg) PO DAILY methylcellulose (laxative) (Citrucel Sugar Free oral powder) 2 grams PO DAILY PRN Tobacco use date assessed: 10/25/23 Dental Screening Dental Screen Date: 10/25/23 Did you have a dental visit in the last 12 months?: Yes Did you have a dental problem in the last 6 months where you did not have access to dental care?: No Was dental information given to patient?: Patient has dentist HPI 4 month fu HPI Details Pt presents for f/u for DM 2, HTN, hyperlipid, hypothyroid, stable on meds. Patient has not been taking metformin regularly and has not been compliant with ADA diet. She has not been checking her blood glucose regularly. Patient is going to [place] for 1 month in January [facility] Medical History Diabetes Thyroid disease HTN (hypertension) Normal pelvic exam Annual physical exam Hyperglycemia Stress incontinence Hyperlipidemia Surgical History H/O colonoscopy Family History Mother No problems noted. Social History Housing: House Alcohol intake: never Patient Tobacco Use Status: Never used Tobacco e-Cigarette/Vaping Use: Never Used Current occupational status: employed Cognitive needs: No Hearing needs: No Vision needs: Yes Questionnaire PHQ-9 Over the last 2 weeks, how often have you been bothered by any of the following problems? 1. Little interest or pleasure in doing things: several days 2. Feeling down, depressed, or hopeless: not at all 3. Trouble falling or staying asleep, or sleeping too much: not at all 4. Feeling tired or having little energy: several days 5. Poor appetite or overeating: not at all 6. Feeling bad about yourself - or that you are a failure or have let yourself or your family down: not at all 7. Trouble concentrating on things, such as reading the newspaper or watching television: not at all 8. Moving or speaking so slowly that other people could have noticed. Or the opposite - being so fidgety or restless that you have been moving around a lot more than usual: not at all 9. Thoughts that you would be better off or of hurting yourself in some way: not at all Total score: 2 Depression Screening Interpretation: Negative Depression Screening Done: Yes Source: Developed by Drs. Esau Shipman, Dahiana Diaz, Dmitriy Bridges and colleagues, with an educational milton from [employer]. Thrive Questionnaire Date Thrive assessed: 10/25/23 I am a: Patient What is your living situation today?: I have a steady place to live Within the past 12 months, did the food you bought not last and you didn't have the money to get more?: Never true Within the past 12 months, did you worry whether your food would run out before you got money to buy more?: Never true Do you have trouble paying for medicines?: No Do you have trouble getting transportation to medical appointments?: No Do you have trouble paying your heating and electricity bill?: No Do you have trouble taking care of your child, family member or friend?: No Do you have trouble with day-to-day activities such as bathing, preparing meals, shopping, managing finances, etc.?: No Are you currently unemployed and looking for a job?: No Are you interested in more education?: No THRIVE Score: 0 AUDIT C Alcohol Use Questionnaire (AUDIT-C) 1. How often do you have a drink containing alcohol?: Never Total Score: 0 HAJA-7 AMB Questionnaire HAJA-7 Date HAJA - 7 assessed: 10/25/23 Feeling nervous, anxious, or on edge: 0 = Not at all Not being able to stop or control worryin = Not at all Worrying too much about different things: 1 = Several days Trouble relaxin = Several days Being so restless that it is hard to sit still: 1 = Several days Becoming easily annoyed or irritable: 0 = Not at all Feeling afraid as if something awful might happen: 0 = Not at all Total HAJA-7 score (0-4 normal; 5-9 mild; 10-14 moderate; 15-21 severe): 3 Source: Developed by Drs. Esau Shipman, Dahiana Diaz, Dmitriy Bridges and colleagues, with an educational miltno from [employer]. Review of Systems Const All systems reviewed & are unremarkable except as noted in HPI and below Reports no additional complaints Eyes Reports no additional complaints ENT Reports no additional complaints Card Reports no additional complaints Resp Reports no additional complaints GI Reports no additional complaints Reports no additional complaints Physical exam (Primary Care) Vital Signs: Last Vital Signs Pulse 66 10/25/23 07:50 BP 124/70 10/25/23 07:50 Pulse Ox 95 10/25/23 07:50 Oxygen Delivery Method Room Air 10/25/23 07:50 BMI result Body Mass Index 33.1 Tobacco/Smoking Status: Tobacco use Status Tobacco use date assessed 10/25/23 10/25/23 07:52 Patient Tobacco Use Status Never used Tobacco 10/25/23 07:49 e-Cigarette/Vaping Use Never Used 10/25/23 07:49 PHQ-9: PHQ-9 Score PHQ-9: Total score 2 10/25/23 07:56 Depression Screening Interpretation: Negative Thrive Assessment: Date of Thrive Assessment Date Thrive assessed 10/25/23 10/25/23 07:56 Const General: no acute distress HENMT Head: Yes normal to inspection Ears: hearing grossly normal bilaterally Face and sinus: Yes normal facial exam Mouth: Normal oral and palatal mucosa present Throat: Yes posterior oropharynx normal Eyes General: appearance normal, both eyes and all related structures Neck Neck: Yes no lymphadenopathy and Yes supple Resp Effort & Inspection: normal respiratory effort Auscultation: clear to auscultation bilaterally Cardio Rhythm: regular rhythm Heart sounds: S1 normal heart sound present and S2 normal heart sound present GI Inspection: Yes normal to inspection Palpation (GI): Soft to palpation Percussion: Yes normal to percussion Auscultation: normal bowel sounds Assessment and Plan Assessment & Plan (1) Hypothyroidism, unspecified: Code(s): E03.9 - Hypothyroidism, unspecified Plan: increase Levothyroxine 112 mcg, recheck TSH (2) DM2 (diabetes mellitus, type 2): Code(s): E11.9 - Type 2 diabetes mellitus without complications Plan: A1C is 6.7, ADA DIET INCREASE PHYSICAL ACTIVITY MEDICATION COMPLIANCE DISCUSSED WITH THE PATIENT. Patient was advised to try GLP 1 receptor agonist BUT SHE DECLINED. She will FOLLOW-UP IN 4 MONTHS WITH FASTING LABS BEFORE (3) Hyperlipidemia: Code(s): E78.5 - Hyperlipidemia, unspecified Plan: Continue fenofibrate (4) Tubular adenoma: Comment: 06/27 1 polyp, recheck in 5 yrs Code(s): D36.9 - Benign neoplasm, unspecified site Orders: Orders Lipid Panel 4 Months D36.9 - Benign neoplasm, unspecified site, E03.9 - Hypothyroidism, unspecified, E11.9 - Type 2 diabetes mellitus without complications, E78.5 - Hyperlipidemia, unspecified Complete Blood Count Auto Diff 4 Months D36.9 - Benign neoplasm, unspecified site, E03.9 - Hypothyroidism, unspecified, E11.9 - Type 2 diabetes mellitus without complications, E78.5 - Hyperlipidemia, unspecified TSH reflex Free T4 4 Months D36.9 - Benign neoplasm, unspecified site, E03.9 - Hypothyroidism, unspecified, E11.9 - Type 2 diabetes mellitus without complications, E78.5 - Hyperlipidemia, unspecified Comprehensive [place]. Panel Fast 4 Months D36.9 - Benign neoplasm, unspecified site, E03.9 - Hypothyroidism, unspecified, E11.9 - Type 2 diabetes mellitus without complications, E78.5 - Hyperlipidemia, unspecified Hemoglobin A1c 4 Months D36.9 - Benign neoplasm, unspecified site, E03.9 - Hypothyroidism, unspecified, E11.9 - Type 2 diabetes mellitus without complications, E78.5 - Hyperlipidemia, unspecified Microalbumin, Random (w Creat) 4 Months D36.9 - Benign neoplasm, unspecified site, E03.9 - Hypothyroidism, unspecified, E11.9 - Type 2 diabetes mellitus without complications, E78.5 - Hyperlipidemia, unspecified Medications: New levothyroxine 112 mcg PO DAILY 90 tabs 2RF Discontinued levothyroxine Discontinued Reason: Doctor's Order 100 mcg PO DAILY 90 tabs 3RF Coding Level of Care Code Est Pt Level 4 (92755) Diagnoses Hypothyroidism, unspecified E03.9 DM2 (diabetes mellitus, type 2) E11.9 Hyperlipidemia E78.5 Tubular adenoma D36.9
[2023-10-25 07:50] VITALS: BP 124/70; PULSE 66; O2SAT 95; BMI 33.1
== END 2023-10-25 08:32 | disposition home or self-care (01) ==
PROVIDERS: PCP Internal Medicine; Visit Provider Internal Medicine
DX: E03.9 Hypothyroidism, unspecified (principal); E11.9 Type 2 diabetes mellitus without complications; E78.5 Hyperlipidemia, unspecified; D36.9 Benign neoplasm, unspecified site
CPT/HCPCS: 99214

== ENCOUNTER 2024-01-01 08:53 | Outpatient (AMB) | payer BC, SELFPAY ==
--- NOTE | 2024-01-01 10:02 | MHC.OFFWIV ---
Intake Vital Signs 01/01/24 10:03 Height 5 ft 4 in Weight 188 lb BMI 32.3 BP 140/72 H Blood Pressure Location Lt brachial Position Sitting Pulse 72 Pulse Source Pulse Oximeter Temp 97.9 F Temp Source Temporal Artery Scan Pulse Oximetry (%) 97 Oxygen Delivery Method Room Air Intake Visit Reasons: EST/ ear pain/ congestion (lobby masked) Intake Note: pt is here today for ear pain congestion started 1 week ago Patient Tobacco Use Status: Never used Tobacco Allergies No Known Allergies Allergy (Verified 01/01/24 10:17) Medication List - Last Reconciled 01/01/24 by Rome Roberts MD blood sugar diagnostic ([employer] Observeruch Ultra Test strips) 1 QD blood-glucose meter ([employer]uch Ultra2 Meter) As directed Farxiga (dapagliflozin propanediol) 10 mg PO DAILY NS fenofibrate 160 mg PO DAILY lancets ([employer] Delica Plus Lancet) 1 qd levothyroxine 112 mcg PO DAILY lisinopril 10 mg PO DAILY metformin ER 1,500 mg (2 x 750 mg) PO DAILY methylcellulose (laxative) (Citrucel Sugar Free oral powder) 2 grams PO DAILY PRN Do you need a note to return to daycare/school/sports/work: No HPI EST/ ear pain/ congestion (lobby masked) HPI Details Patient presents for a sick visit. Reporting symptoms of sinus congestion, sore throat and difficulty swallowing. Low-grade fever. No family member is sick. No recent travel. Patient reports symptoms of malaise and fatigue. [facility] Medical History Diabetes Thyroid disease HTN (hypertension) Normal pelvic exam Annual physical exam Hyperglycemia Stress incontinence Hyperlipidemia Surgical History H/O colonoscopy Family History Mother No problems noted. Social History Housing: House Alcohol intake: never Patient Tobacco Use Status: Never used Tobacco e-Cigarette/Vaping Use: Never Used Current occupational status: employed Cognitive needs: No Hearing needs: No Vision needs: Yes Physical Exam Vital Signs: Last Vital Signs Temp 97.9 F 01/01/24 10:03 Pulse 72 01/01/24 10:03 BP 140/72 H 01/01/24 10:03 Pulse Ox 97 01/01/24 10:03 Oxygen Delivery Method Room Air 01/01/24 10:03 BMI result Body Mass Index 32.3 Const General: cooperative and healthy appearing Nutritional Appearance: well nourished Orientation/consciousness: patient oriented x3 Limitations: no limitations HEENT Head: Yes normal to inspection Eyes General: appearance normal, both eyes and all related structures Neck Neck: Yes normal visual inspection Chest Chest palpation & inspection: normal palpation of entire chest wall Resp Effort & Inspection: normal respiratory effort Neuro General: patient oriented x3 Assessment & Plan Assessment & Plan (1) Upper respiratory tract infection: Code(s): J06.9 - Acute upper respiratory infection, unspecified Plan: Antibiotics ordered. Increase fluid intake. Tylenol for aches and pains. If symptoms worsen, follow-up here for a recheck. Coding Level of Care Code Est Pt Level 3 (12521) Diagnoses Upper respiratory tract infection J06.9
[2024-01-01 10:03] VITALS: BP 140/72; PULSE 72; TEMP 36.6; O2SAT 97; BMI 32.3
== END 2024-01-01 10:56 | disposition home or self-care (01) ==
PROVIDERS: PCP Internal Medicine; Visit Provider Internal Medicine
DX: J06.9 Acute upper respiratory infection, unspecified (principal)
CPT/HCPCS: 99213

== ENCOUNTER 2024-02-05 08:25 | Outpatient (AMB) | payer BC, SELFPAY ==
--- NOTE | 2024-02-05 08:26 | A.OFFPC_ITS ---
Vital Signs 02/05/24 08:27 Height 5 ft 4 in Weight 186 lb BMI 31.9 BP 124/70 Blood Pressure Location Lt brachial Position Sitting Pulse 76 Pulse Source Pulse Oximeter Pulse Oximetry (%) 98 Oxygen Delivery Method Room Air Intake Visit Reasons: 3M F/U Intake Note: Pt is here today for 3 months follow up visit. Allergies No Known Allergies Allergy (Verified 02/05/24 08:28) Medication List - Last Reconciled 02/05/24 by Rocío Eastman MD blood sugar diagnostic (Abacuz LimitedTouch Ultra Test strips) 1 QD blood-glucose meter ([employer] Ultra2 Meter) As directed Farxiga (dapagliflozin propanediol) 10 mg PO DAILY NS fenofibrate 160 mg PO DAILY lancets (OneTouch Delica Plus Lancet) 1 qd levothyroxine 112 mcg PO DAILY lisinopril 10 mg PO DAILY metformin ER 1,500 mg (2 x 750 mg) PO DAILY methylcellulose (laxative) (Citrucel Sugar Free oral powder) 2 grams PO DAILY PRN Tobacco use date assessed: 02/05/24 Fall risk assessment: No Falls in past year Last assessed Fall Risk: 02/05/24 Dental Screening Dental Screen Date: 10/25/23 HPI 3M F/U HPI Details Patient presents for the follow-up on hypertension hyperlipidemia hypothyroidism and type 2 diabetes. [facility] Medical History Diabetes Thyroid disease HTN (hypertension) Normal pelvic exam Annual physical exam Hyperglycemia Stress incontinence Hyperlipidemia Surgical History H/O colonoscopy Family History Mother No problems noted. Social History Housing: House Alcohol intake: never Patient Tobacco Use Status: Never used Tobacco e-Cigarette/Vaping Use: Never Used service: No Current occupational status: employed Cognitive needs: No Hearing needs: No Vision needs: Yes Questionnaire Thrive Questionnaire Date Thrive assessed: 10/25/23 AHJA-7 AMB Questionnaire HAJA-7 Date HAJA - 7 assessed: 10/25/23 Source: Developed by Drs. Esau Shipman, Dahiana B.W. Dmitriy Diaz and colleagues, with an educational milton from [employer]. Review of Systems Const All systems reviewed & are unremarkable except as noted in HPI and below Eyes Reports no additional complaints ENT Reports no additional complaints Card Reports no additional complaints Resp Reports no additional complaints GI Reports no additional complaints Physical exam (Primary Care) Vital Signs: Last Vital Signs Pulse 76 02/05/24 08:27 BP 124/70 02/05/24 08:27 Pulse Ox 98 02/05/24 08:27 Oxygen Delivery Method Room Air 02/05/24 08:27 BMI result Body Mass Index 31.9 Tobacco/Smoking Status: Tobacco use Status Tobacco use date assessed 02/05/24 02/05/24 08:30 Patient Tobacco Use Status Never used Tobacco 02/05/24 08:30 e-Cigarette/Vaping Use Never Used 02/05/24 08:30 Thrive Assessment: Date of Thrive Assessment Date Thrive assessed 10/25/23 02/05/24 08:30 Const General: no acute distress HENMT Face and sinus: Yes normal facial exam Resp Effort & Inspection: normal respiratory effort Auscultation: clear to auscultation bilaterally Cardio Rhythm: regular rhythm Heart sounds: S1 normal heart sound present and S2 normal heart sound present GI Inspection: Yes normal to inspection Palpation (GI): Soft to palpation Percussion: Yes normal to percussion Auscultation: normal bowel sounds Assessment and Plan Assessment & Plan (1) HTN (hypertension): Code(s): I10 - Essential (primary) hypertension Plan: Continue current medications (2) Hypothyroidism, unspecified: Code(s): E03.9 - Hypothyroidism, unspecified Plan: Continue levothyroxine (3) DM2 (diabetes mellitus, type 2): Code(s): E11.9 - Type 2 diabetes mellitus without complications Plan: ADA diet regular physical activity discussed with the patient she will have A1c today and in 3 months. Patient will continue the same medications (4) Hyperlipidemia: Code(s): E78.5 - Hyperlipidemia, unspecified Plan: Continue fenofibrate Orders: Orders Hemoglobin A1c 3 Months E11.9 - Type 2 diabetes mellitus without complications, E78.5 - Hyperlipidemia, unspecified, I10 - Essential (primary) hypertension Comprehensive [place]. Panel Fast 3 Months E11.9 - Type 2 diabetes mellitus without complications, E78.5 - Hyperlipidemia, unspecified, I10 - Essential (primary) hypertension Lipid Panel 3 Months E11.9 - Type 2 diabetes mellitus without complications, E78.5 - Hyperlipidemia, unspecified, I10 - Essential (primary) hypertension Microalbumin, Random (w Creat) 3 Months E11.9 - Type 2 diabetes mellitus without complications, E78.5 - Hyperlipidemia, unspecified, I10 - Essential (primary) hypertension Coding Level of Care Code Est Pt Level 4 (49762) Diagnoses HTN (hypertension) I10 Hypothyroidism, unspecified E03.9 DM2 (diabetes mellitus, type 2) E11.9 Hyperlipidemia E78.5
[2024-02-05 08:27] VITALS: BP 124/70; PULSE 76; O2SAT 98; BMI 31.9
== END 2024-02-05 08:47 | disposition home or self-care (01) ==
PROVIDERS: PCP Internal Medicine; Visit Provider Internal Medicine
DX: I10 Essential (primary) hypertension (principal); E03.9 Hypothyroidism, unspecified; E11.9 Type 2 diabetes mellitus without complications; E78.5 Hyperlipidemia, unspecified
CPT/HCPCS: 99214

== ENCOUNTER 2024-02-05 08:48 | Outpatient (REF) | payer BC, SELFPAY ==
[2024-02-05 10:46] LABS: MANUAL DIFF FLAG NO
[2024-02-05 11:22] LABS: Basophils Absolute Auto 0.1 X10*3/uL (0.0-0.2); Basophils Percent Auto 0.7 % (0-2); Eosinophils Absolute Auto 0.2 X10*3/uL (0.0-0.4); Eosinophils Percent Auto 3.1 % (0-4); Hematocrit 43.9 % (37.0-47.0); Hemoglobin 14.6 g/dl (12.0-16.0); Imm Gran Abs Auto 0.03 X10*3/uL (0.00-0.03); Imm Gran Pct Auto 0.4 % (0.0-0.4); Lymphocytes Absolute Auto 2.6 X10*3/uL (1.2-4.9); Mean Corpuscular HGB Conc 33.3 g/dl (31.0-35.0); Mean Corpuscular Hemoglobin 29.9 pg (27.0-33.0); Mean Platelet Volume 12.1 fL (9.4-12.3); Monocytes Absolute Auto 0.4 X10*3/uL (0.1-1.2); Monocytes Percent Auto 6.5 % (2-11); Neutrophils Absolute Auto 3.5 x10*3/uL (2.0-8.3); Neutrophils Percent Auto 51.3 % (45-73); Platelet Count 227 X10*3/uL (160-400); Red Blood Count 4.88 X10*6/uL (4.20-5.50); Red Cell Distribution Width 13.7 % (11.0-16.0); White Blood Count 6.8 X10*3/uL (4.8-10.8)
[2024-02-05 11:46] LABS: Alanine Aminotransferase 34 U/L (0-31); Albumin Level 4.3 g/dL (3.5-5.0); Alkaline Phosphatase 61 U/L (39-117); Anion Gap 13 (12-20); Aspartate Amino Transferase 29 U/L (5-31); Bilirubin Total 0.8 mg/dL (0.0-1.0); Blood Urea Nitrogen 14 mg/dL (9-16); Calcium 9.6 mg/dL (8.4-10.2); Carbon Dioxide 23 mmol/L (22-29); Chloride 107 mmol/L (96-108); Cholesterol 177 mg/dL (<200); Estimated Glomerular Filt Rate > 60; Glucose Fasting 104 mg/dL (60-99); HDL Cholesterol 41 mg/dL (>40); LDL Cholesterol Calculated 101 mg/dL (<100); Potassium 4.1 mmol/L (3.3-5.1); Sodium 139 mmol/L (135-145); Total Protein 7.5 g/dL (6.5-8.0); Triglycerides 175 mg/dL (<150)
[2024-02-05 11:58] LABS: Estimated Average Glucose 143 mg/dL; Hemoglobin A1c % 6.6 % (<6.0)
[2024-02-05 12:07] LABS: Creatinine Urine 105.93 mg/dL; Microalbum/Creatinine Ratio Ur 7.5 ug/mg cr (<30)
[2024-02-05 12:08] LABS: TSH reflex Free T4 1.51 uIU/mL (0.32-4.0)
== END 2024-02-05 08:49 | disposition home or self-care (01) ==
LOC: HO.HMGCLDS 08:48
PROVIDERS: PCP Internal Medicine; Visit Provider Internal Medicine
DX: E03.9 Hypothyroidism, unspecified (principal); E11.9 Type 2 diabetes mellitus without complications; E78.5 Hyperlipidemia, unspecified; D36.9 Benign neoplasm, unspecified site
CPT/HCPCS: 36415; 80053; 80061; 82043; 82570; 83036; 84443; 85025

== ENCOUNTER 2024-05-08 09:18 | Outpatient (AMB) | payer BC, SELFPAY ==
[2024-05-08 09:29] VITALS: BP 122/66; PULSE 67; O2SAT 95; BMI 32.6
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
== END 2024-05-08 10:37 | disposition home or self-care (01) ==
PROVIDERS: PCP Internal Medicine; Visit Provider Internal Medicine
DX: I10 Essential (primary) hypertension (principal); E11.9 Type 2 diabetes mellitus without complications; E78.5 Hyperlipidemia, unspecified; E03.9 Hypothyroidism, unspecified; Z13.9 Encounter for screening, unspecified

== ENCOUNTER → 2024-05-08 09:18 | Outpatient (BNVA) | payer BC, SELFPAY | PROVIDERS: PCP Internal Medicine; Visit Provider Internal Medicine | DX: I10 Essential (primary) hypertension (principal); E11.9 Type 2 diabetes mellitus without complications; E78.5 Hyperlipidemia, unspecified; E03.9 Hypothyroidism, unspecified; Z79.899 Other long term (current) drug therapy | CPT/HCPCS: 83036; 96127 ==

== ENCOUNTER 2024-07-18 08:40 | Outpatient (REF) | payer BC, SELFPAY ==
[2024-07-18 10:31] LABS: MANUAL DIFF FLAG NO
[2024-07-18 10:38] LABS: Basophils Absolute Auto 0.1 X10*3/uL (0.0-0.2); Basophils Percent Auto 0.9 % (0-2); Eosinophils Absolute Auto 0.3 X10*3/uL (0.0-0.4); Eosinophils Percent Auto 4.6 % (0-4); Hematocrit 40.6 % (37.0-47.0); Hemoglobin 13.5 g/dl (12.0-16.0); Imm Gran Abs Auto 0.01 X10*3/uL (0.00-0.03); Imm Gran Pct Auto 0.1 % (0.0-0.4); Lymphocytes Absolute Auto 2.1 X10*3/uL (1.2-4.9); Lymphocytes Percent Auto 30.8 % (20-40); Mean Corpuscular HGB Conc 33.3 g/dl (31.0-35.0); Mean Corpuscular Hemoglobin 30.5 pg (27.0-33.0); Mean Corpuscular Volume 91.6 fL (80.0-98.0); Mean Platelet Volume 12.8 fL (9.4-12.3); Monocytes Absolute Auto 0.4 X10*3/uL (0.1-1.2); Monocytes Percent Auto 6.5 % (2-11); Neutrophils Absolute Auto 3.9 x10*3/uL (2.0-8.3); Neutrophils Percent Auto 57.1 % (45-73); Platelet Count 231 X10*3/uL (160-400); Red Blood Count 4.43 X10*6/uL (4.20-5.50); Red Cell Distribution Width 12.9 % (11.0-16.0); White Blood Count 6.8 X10*3/uL (4.8-10.8)
[2024-07-18 10:45] LABS: Creatinine Urine 62.06 mg/dL; Microalbumin Urine < 5.0 mg/L
[2024-07-18 10:51] LABS: Estimated Average Glucose 140 mg/dL; Hemoglobin A1C 148.7395 umol/L; Hemoglobin A1c % 6.5 % (<6.0); Total Hemoglobin (HGBA1C) 3141.4642 umol/L
[2024-07-18 11:14] LABS: Alanine Aminotransferase 36 U/L (0-31); Albumin Level 4.3 g/dL (3.5-5.0); Alkaline Phosphatase 63 U/L (39-117); Anion Gap 11 (12-20); Aspartate Amino Transferase 31 U/L (5-31); Bilirubin Total 0.5 mg/dL (0.0-1.0); Blood Urea Nitrogen 16 mg/dL (9-16); Calcium 9.5 mg/dL (8.4-10.2); Carbon Dioxide 25 mmol/L (22-29); Chloride 108 mmol/L (96-108); Cholesterol 180 mg/dL (<200); Estimated Glomerular Filt Rate > 60; Glucose Fasting 154 mg/dL (60-99); HDL Cholesterol 42 mg/dL (>40); LDL Cholesterol Calculated 103 mg/dL (<100); Sodium 140 mmol/L (135-145); TSH reflex Free T4 2.58 uIU/mL (0.32-4.0); Total Protein 7.4 g/dL (6.5-8.0); Triglycerides 176 mg/dL (<150); Vitamin D 25-OH Total 47.5 ng/mL (>30)
== END 2024-07-18 08:41 | disposition home or self-care (01) ==
LOC: HO.HMGCLDS 08:40
PROVIDERS: PCP Internal Medicine; Visit Provider Internal Medicine
DX: I10 Essential (primary) hypertension (principal); E11.9 Type 2 diabetes mellitus without complications; E78.5 Hyperlipidemia, unspecified; E03.9 Hypothyroidism, unspecified
CPT/HCPCS: 36415; 80053; 80061; 82306; 82570; 83036; 84443; 85025

== ENCOUNTER 2024-07-22 08:23 | Outpatient (AMB) | payer BC, SELFPAY ==
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
[2024-07-22 08:35] VITALS: BP 122/74; PULSE 74; O2SAT 97; BMI 32.6
== END 2024-07-22 09:14 | disposition home or self-care (01) ==
PROVIDERS: PCP Internal Medicine; Visit Provider Internal Medicine
DX: Z00.00 Encounter for general adult medical examination without abnormal findings (principal); E11.9 Type 2 diabetes mellitus without complications; Z98.890 Other specified postprocedural states; E03.9 Hypothyroidism, unspecified; I10 Essential (primary) hypertension

== ENCOUNTER 2024-07-22 08:23 | Outpatient (REF) | payer BC, SELFPAY ==
[2024-07-22 10:50] LABS: HPV 16,18/45 See PAP report
== END 2024-07-22 08:24 | disposition home or self-care (01) ==
LOC: HO.LNP 08:23
PROVIDERS: PCP Internal Medicine; Visit Provider Internal Medicine
DX: Z00.00 Encounter for general adult medical examination without abnormal findings (principal)
CPT/HCPCS: 87624; 88175

== ENCOUNTER 2024-11-25 08:32 | Outpatient (REF) | payer BC, SELFPAY ==
--- OUTSIDE RECORDS SUMMARY | 2024-11-25 08:55 | XMS_ITS | Encounter Summary ---
Author Organization [facility] Address [address] [place] [address] Care Team Providers Care Hanger Off Name Role Phone Rocío Eastman MD Primary Care Provider [phone] Reason for Visit * Imaging (Routine) - Authorized Specialty Diagnoses / Procedures Referred By Wendy valenzuela Referred To Contact Radiology Diagnoses Encounter for screening mammogram for breast cancer Procedures MG Mammo Digital Screening w [facility] MG Mammo Digital Screening w [facility] Rocío Eastman MD [address] [place] [address] Phone: tel: fax: [facility] Referral ID Status Reason Start Date Expiration Date V isits Requested Visits Authorized [id number] Authorized 05/22/2024 05/22/2025 1 1 Encounter Details Date Type Department Care Team (Latest Contact Info) Description 11/25/2024 7:57 AM EDT Hospital Encounter Radiology Department - [address] [address] Encounter for screening mammogram for breast cancer Social History Tobacco Use Types Packs/Day Years Used Date Smoking Tobacco: Never Smokeless Tobacco: Never Alcohol Use Standard Drinks/Week Comments No 0 (1 standard drink = 0.6 oz pur e alcohol) Comments Unknown Sex and Gender Information Value Date Recorded Sex Assigned at Not on file Legal Sex Female 9:49 PM EST Gender Identity Not on file Sexual Orientation Not on file documented as of this encounter Plan of Treatment Pending Results Name Type Priority Associated Diagnoses Date /Time MG Mammo Digital Screening w [facility] Imaging Routine Encounter for screening mammogram for breast cancer 11/25/2024 8:09 AM EDT Scheduled Orders Name Type Priority Associated Diagnoses Orde r Schedule MG Mammo Digital Screening w [facility] Imaging Routine Encounter for screening mammogram for breast cancer Once for 1 Occurrences starting 11/25/2024 until 11/25/2024 documented as of this encounter Visit Diagnoses Diagnosis Encounter for screening mammogram for breast cancer documented in this encounter Care Teams Hanger Off Relationship Specialty Start Date End Date Rocío Eastman MD [address] [place] [address] PCP - General Internal Medicine 01/31/12 documented as of this encounter
--- OUTSIDE RECORDS SUMMARY | 2024-11-25 08:55 | XMS_ITS | Clinical Summary ---
Author Organization [facility] [address] [place] [address] [place] [address] Phone Care Team Providers Care Clinical Training Coordinator Name Role Phone Rocío Eastman MD Primary Care Provider [phone] Encounters Date Type Department Care Team Description 11/25/2024 7:57 AM EDT Hospital Encounter Radiology Department - [address] [phone] Encounter for screening mammogram for breast cancer from Last 3 Months Medical History Medical History Date Comments HTN (hypertension) DX:HTN (hyper tension) Hyperlipidemia DX:Hyperlipidemi a Social History Tobacco Use Types Packs/Day Years Used Date Smoking Tobacco: Never Smokeless Tobacco: Never Alcohol Use Standard Drinks/Week Comments No 0 (1 standard drink = 0.6 oz pur e alcohol) Comments Unknown Sex and Gender Information Value Date Recorded Sex Assigned at Not on file Legal Sex Female 9:49 PM EST Gender Identity Not on file Sexual Orientation Not on file Obstetrics History Para Term AB IAB SAB Ectopic Multiple Livin g Live Births 2 2 2 2 Date Outcome GA Total Labor Labor/2nd/3rd Weight Sex Type Anes PTL Mirna A1 A5 Name Clin Term Term Plan of Treatment Health Maintenance Due Date Last Done Comments DTaP,Tdap,and Td Vaccines (1 - Tdap) 11/12/1978 Cervical Cancer Screening: Pap Smear 11/12/1980 Pneumococcal Vaccine: 50+ Years (1 of 1 - PCV) 11/12/2009 Zoster Vaccines (1 of 2) 11/12/2009 Cholesterol Screening (Lipid Panel) 07/08/2022 Colorectal Cancer Screening: Colonoscopy 07/08/2022 Depression Screening 07/08/2022 Hepatitis C Screening 07/08/2022 Osteoporosis Screening (Bone Density Screening) 07/08/2022 Social Influencers of Health Screening 07/08/2022 Hypertension/CHF/CAD Annual BMP Blood Test 07/22/2022 COVID-19 Vaccine ( season) 2024 05/14/2022, 07/08/2021, 11/21/2020, Additional history exists Falls Risk Assessment 11/12/2024 Breast Cancer Screening 11/12/2025 11/13/19 24, 2023, 11/02/2022, Additional history exists RSV Immunization Adult Patients (1 - 1-dose 75+ series) 11/12/2034 Influenza Vaccine Completed 05/03/2024, , 05/14/2022, Additional history exists HIB Vaccines Aged Out No longer eligi ble based on patient's age to complete this topic HPV Vaccines Aged Out No longer eligi ble based on patient's age to complete this topic Hepatitis A Vaccines Aged Out No long er eligible based on patient's age to complete this topic Hepatitis B Vaccines Aged Out No long er eligible based on patient's age to complete this topic IPV Vaccines Aged Out No longer eligi ble based on patient's age to complete this topic MMR Vaccines Aged Out No longer eligi ble based on patient's age to complete this topic Meningococcal ACWY Vaccine Aged Out N o longer eligible based on patient's age to complete this topic Meningococcal B Vaccine Aged Out No l onger eligible based on patient's age to complete this topic Pneumococcal Vaccine: Pediatrics (0 to 5 Years) and At-Risk Patients (6 to 64 Years) Aged Out No longer eligible based on patient's age to complete this topic RSV Immunization Patients Under 20 months Aged Out No longer eligible based on patient's age to complete this topic Varicella Vaccines Aged Out No longer eligible based on patient's age to complete this topic Procedures Procedure Name Priority Date/Time Associated Diagnosis Comments SCREENING MAMMOGRAPHY BI 2-VIEW BREAST INC CAD Routine 2023 8:36 AM EDT Encounter for screening mammogram for malignant neoplasm of breast from Last 3 Months or Most Recently Relevant to Health Maintenance Results * SCREENING MAMMOGRAPHY BI 2-VIEW BREAST INC CAD (2023 8:36 AM EDT) Anatomical Region Laterality Modality Radiographic Audelia ging 11/02/2022 8:18 AM EDT Narrative 2023 5:46 PM EDT This is a summary report. The complete report is available in the patient's medical record. If you cannot access the medical record, please contact the sending organization for a detailed fax or copy. BILATERAL 3D DIGITAL SCREENING MAMMOGRAM History: Routine screening. ??No current breast complaints. ?? Comparison: Multiple priors dating back to 06/03/2019 Technique: Bilateral full-field digital 3D mammography was performed using standard CC and MLO projections CAD was used to evaluate this mammogram. Findings: Density: ??There are scattered areas of fibroglandular density-B RIGHT: No suspicious masses, groups of microcalcification or areas of architectural distortion identified. Stable typically benign parenchymal asymmetries LEFT: No suspicious masses, groups of microcalcifications or areas of architectural distortion identified. Stable typically benign parenchymal asymmetries IMPRESSION: : 1. ??No mammographic evidence of malignancy. BI-RADS Category 2 benign findings Recommendation: Routine annual screening mammography is recommended Procedure Note Nabil Guzman MD - 03/24/2024 This is a summary report. The complete report is available in thepatient's medical record. If you cannot access the medical record, pleasecontact the sending organization for a detailed fax or copy. BILATERAL 3D DIGITAL SCREENING MAMMOGRAM History: Routine screening. No current breast complaints. Comparison: Multiple priors dating back to 06/03/2019 Technique: Bilateral full-field digital 3D mammography was performed usingstandard CC and MLO projections CAD was used to evaluate this mammogram. Findings: Density: There are scattered areas of fibroglandular density-B RIGHT: No suspicious masses, groups of microcalcification or areas ofarchitectural distortion identified. Stable typically benign parenchymalasymmetries LEFT: No suspicious masses, groups of microcalcifications or areas ofarchitectural distortion identified. Stable typically benign parenchymalasymmetries IMPRESSION: : 1. No mammographic evidence of malignancy. BI-RADS Category 2 benign findings Recommendation: Routine annual screening mammography is recommended Rocío Eastman MD IMG XR PROCEDURES Final Result from Last 3 Months or Most Recently Relevant to Health Maintenance Insurance [facility]) Care Teams Clinical Training Coordinator Relationship Specialty Start Date End Date Rocío Eastman MD [address] [facility] [place] [phone] PCP - General Internal Medicine 01/31/12
[2024-11-25 10:10] LABS: MANUAL DIFF FLAG NO
[2024-11-25 10:24] LABS: Basophils Absolute Auto 0.1 X10*3/uL (0.0-0.2); Eosinophils Absolute Auto 0.3 X10*3/uL (0.0-0.4); Eosinophils Percent Auto 3.8 % (0-4); Hematocrit 41.7 % (37.0-47.0); Hemoglobin 13.9 g/dl (12.0-16.0); Imm Gran Abs Auto 0.02 X10*3/uL (0.00-0.03); Imm Gran Pct Auto 0.3 % (0.0-0.4); Lymphocytes Absolute Auto 2.3 X10*3/uL (1.2-4.9); Lymphocytes Percent Auto 31.3 % (20-40); Mean Corpuscular HGB Conc 33.3 g/dl (31.0-35.0); Mean Corpuscular Hemoglobin 30.2 pg (27.0-33.0); Mean Corpuscular Volume 90.5 fL (80.0-98.0); Mean Platelet Volume 12.2 fL (9.4-12.3); Monocytes Absolute Auto 0.5 X10*3/uL (0.1-1.2); Monocytes Percent Auto 6.8 % (2-11); Neutrophils Absolute Auto 4.1 x10*3/uL (2.0-8.3); Neutrophils Percent Auto 56.8 % (45-73); Platelet Count 210 X10*3/uL (160-400); Red Blood Count 4.61 X10*6/uL (4.20-5.50); Red Cell Distribution Width 12.8 % (11.0-16.0); White Blood Count 7.2 X10*3/uL (4.8-10.8)
[2024-11-25 10:31] LABS: Estimated Average Glucose 143 mg/dL; Hemoglobin A1C 180.6996 umol/L; Hemoglobin A1c % 6.6 % (<6.0); Total Hemoglobin (HGBA1C) 3675.6207 umol/L
[2024-11-25 10:52] LABS: Creatinine Urine 82.24 mg/dL
[2024-11-25 10:54] LABS: Alanine Aminotransferase 36 U/L (0-31); Albumin Level 4.3 g/dL (3.5-5.0); Alkaline Phosphatase 76 U/L (39-117); Anion Gap 13 (12-20); Aspartate Amino Transferase 31 U/L (5-31); Bilirubin Total 0.4 mg/dL (0.0-1.0); Blood Urea Nitrogen 21 mg/dL (9-16); Calcium 9.4 mg/dL (8.4-10.2); Carbon Dioxide 24 mmol/L (22-29); Chloride 106 mmol/L (96-108); Cholesterol 184 mg/dL (<200); Estimated Glomerular Filt Rate > 60; Glucose Fasting 140 mg/dL (60-99); HDL Cholesterol 40 mg/dL (>40); LDL Cholesterol Calculated 107 mg/dL (<100); Potassium 4.3 mmol/L (3.3-5.1); Sodium 139 mmol/L (135-145); Total Protein 7.3 g/dL (6.5-8.0); Triglycerides 188 mg/dL (<150)
[2024-11-25 10:57] LABS: TSH reflex Free T4 4.27 uIU/mL (0.32-4.0)
[2024-11-25 11:38] LABS: Free T4 (Free Thyroxine) 0.83 ng/dL (0.71-1.85)
== END 2024-11-25 08:33 | disposition home or self-care (01) ==
LOC: HO.HMGCLDS 08:32
PROVIDERS: PCP Internal Medicine; Visit Provider Internal Medicine
DX: E03.9 Hypothyroidism, unspecified (principal); I10 Essential (primary) hypertension; E11.9 Type 2 diabetes mellitus without complications; E78.5 Hyperlipidemia, unspecified
CPT/HCPCS: 36415; 80053; 80061; 82043; 82570; 83036; 84439; 84443; 85025

== ENCOUNTER 2024-11-27 08:40 | Outpatient (AMB) | payer BC, SELFPAY ==
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
[2024-11-27 08:42] VITALS: BP 118/76; PULSE 75; RESP 18; TEMP 36.6; O2SAT 97; BMI 32.6
--- OUTSIDE RECORDS SUMMARY | 2024-11-27 09:04 | XMS_ITS | Encounter Summary ---
Author Organization [facility] Address [address] [place] [address] Care Team Providers Care [employer] Miner Name Role Phone Rocío Eastman MD Primary Care Provider [phone] Reason for Visit * Imaging (Routine) - Authorized Specialty Diagnoses / Procedures Referred By Wendy valenzuela Referred To Contact Radiology Diagnoses Encounter for screening mammogram for breast cancer Procedures MG Mammo Digital Screening w [facility] MG Mammo Digital Screening w [facility] Rocío Eastman MD [address] [place] [address] Phone: tel: fax: [facility] Referral ID Status Reason Start Date Expiration Date V isits Requested Visits Authorized [id number] Authorized 05/22/2024 05/22/2025 1 1 Encounter Details Date Type Department Care Team (Latest Contact Info) Description 11/25/2024 7:57 AM EDT - 11/25/2024 11:59 PM EDT Hospital Encounter Radiology Department - [address] [phone] Encounter for screening mammogram for breast cancer Discharge Disposition: Home or Self Care Social History Tobacco Use Types Packs/Day Years [...] on file documented as of this encounter Discharge Disposition Disposition Code Departure Means Destination Home or Self Care documented in this encounter Plan of Treatment Not on file documented as of this encounter Procedures Procedure Name Priority Date/Time Associated Diagnosis Comments MG MAMMO DIGITAL SCREENING W [facility] BILAT Routine 11/25/2024 8:09 AM EDT Encounter for screening mammogram for breast cancer documented in this encounter Results * MG Mammo Digital Screening w [facility] bil[facility] (11/25/2024 8:09 AM EDT) Anatomical Region Laterality Modality Breast Bilateral Mammography 11/25/2024 8:51 AM EDT Impressions 11/25/2024 8:54 AM EDT BILATERAL BREASTS: Negative, no evidence of malignancy. Normal interval follow- up is recommended in 12 months. BREAST DENSITY: B - There are scattered areas of fibroglandular density. BI-RADS CATEGORY: 1 - NEGATIVE RECOMMENDATION: Screening bilateral mammogram is recommended in 1 year. Mammo Location: [facility], [address] [place] [address], [id number], . -------- FINAL REPORT -------- Dictated By: Diony José Dictated Date: 11/25/2024 08:51 ET Assigned Physician: Diony José Reviewed and Electronically Signed By: Diony José Signed Date: 11/25/2024 08:54 ET Workstation ID: [id number] Transcribed By: Self Edit Transcribed Date: 11/25/2024 08:51 ET Narrative 11/25/2024 8:54 AM EDT STUDY: Bilateral screening mammography with tomosynthesis and CAD TECHNIQUE: Bilateral full-field digital screening mammography is obtained and read in conjunction with computer-aided detection. ??Tomosynthesis as well as 2-D C view imaging were obtained. ?? COMPARISON: Comparison made to multiple prior, most recent 2023, and most remote October 06, 2015. BILATERAL BREASTS: No significant masses, suspicious calcifications or other abnormalities are seen in either breast. Procedure Note Diony José MD - 11/25/2024 STUDY: Bilateral screening mammography with tomosynthesis and CAD TECHNIQUE: Bilateral full-field digital screening mammography is obtainedand read in conjunction with computer-aided detection. Tomosynthesis aswell as 2-D C view imaging were obtained. COMPARISON: Comparison made to multiple prior, most recent 2023,and most remote October 06, 2015. BILATERAL BREASTS: No significant masses, suspicious calcifications orother abnormalities are seen in either breast. IMPRESSION: BILATERAL BREASTS: Negative, no evidence of malignancy. Normal intervalfollow-up is recommended in 12 months. BREAST DENSITY: B - There are scattered areas of fibroglandular density. BI-RADS CATEGORY: 1 - NEGATIVE RECOMMENDATION: Screening bilateral mammogram is recommended in 1 year. Mammo Location: [facility], [address] [place] [address], [address], . -------- FINAL REPORT -------- Dictated By: Diony José Dictated Date: 11/25/2024 08:51 ET Assigned Physician: Diony José Reviewed and Electronically Signed By: Diony José Signed Date: 11/25/2024 08:54 ET Workstation ID: [id number] Transcribed By: Self Edit Transcribed Date: 11/25/2024 08:51 ET Rocío Eastman MD IMG BI PROCEDURES Final Result documented in this encounter Visit Diagnoses Diagnosis Encounter for screening mammogram for breast cancer documented in this encounter Care Teams [employer] Miner Relationship Specialty Start Date End Date Rocío Eastman MD [address] [place] [address] PCP - General Internal Medicine 01/31/12 documented as of this encounter
--- OUTSIDE RECORDS SUMMARY | 2024-11-27 09:04 | XMS_ITS | Clinical Summary ---
Author Organization [facility] [address] [place] [address] [place] [address] Phone Care Team Providers Care Mobile Home Mechanic Name Role Phone Rocío Eastman MD Primary Care Provider [phone] Encounters Date Type Department Care Team Description 11/25/2024 7:57 AM EDT - 11/25/2024 11:59 PM EDT Hospital Encounter Radiology Department - [address] [phone] Encounter for screening mammogram for breast cancer Discharge Disposition: Home or Self Care from Last 3 Months Medical History Medical [...] Falls Risk Assessment 11/12/2024 Breast Cancer Screening 11/25/2026 11/26/19, 2023, 2023, Additional history exists RSV Immunization Adult Patients [...] for breast cancer from Last 3 Months Results * MG Mammo Digital Screening w [...] is recommended in 1 year. Mammo Location: [facility], [address] [place] [address], [phone], . -------- FINAL REPORT -------- Dictated By: Diony José Dictated Date: 11/25/2024 08:51 ET Assigned Physician: Diony José Reviewed and Electronically Signed By: Diony José Signed Date: 11/25/2024 08:54 ET Workstation ID: [id number] Transcribed By: Self Edit Transcribed Date: 11/25/2024 [...] is recommended in 1 year. Mammo Location: [facility], [address] [place] [address], [id number], . -------- FINAL REPORT -------- Dictated By: Diony José Dictated Date: 11/25/2024 08:51 ET Assigned Physician: Diony José Reviewed and Electronically Signed By: Diony José Signed Date: 11/25/2024 08:54 ET Workstation ID: [id number] Transcribed By: Self Edit Transcribed Date: 11/25/2024 08:51 ET Rocío Eastman MD IMG BI PROCEDURES Final Result from Last [address] [place] [address] [place] [address] ([facility]) Care Teams Mobile Home Mechanic Relationship Specialty Start Date End Date Rocío Eastman MD [address] [place] [phone] PCP - General Internal Medicine 01/31/12
== END 2024-11-27 09:22 | disposition home or self-care (01) ==
LOC: HO.HMCC 08:40
PROVIDERS: PCP Internal Medicine; Visit Provider Internal Medicine
DX: E03.9 Hypothyroidism, unspecified (principal); I10 Essential (primary) hypertension; E78.5 Hyperlipidemia, unspecified; E11.9 Type 2 diabetes mellitus without complications

== ENCOUNTER → 2024-11-27 08:40 | Outpatient (BNVA) | payer BC, SELFPAY | PROVIDERS: PCP Internal Medicine; Visit Provider Internal Medicine | DX: E03.9 Hypothyroidism, unspecified (principal); I10 Essential (primary) hypertension; E78.5 Hyperlipidemia, unspecified; E11.9 Type 2 diabetes mellitus without complications; Z79.84 Long term (current) use of oral hypoglycemic drugs; Z79.899 Other long term (current) drug therapy | CPT/HCPCS: 96127 ==

== ENCOUNTER 2025-05-07 09:36 | Outpatient (REF) | payer BC, SELFPAY ==
--- OUTSIDE RECORDS SUMMARY | 2025-05-07 10:38 | XMS_ITS | Clinical Summary ---
Author Organization [address] Address [address] [place] [address] Phone Care Team Providers Care Elastic Tape Inserter Name Role Phone Rocío Eastman MD Primary Care Provider Medical History Medical History Date Comments HTN [...] Name Clin Term Term Plan of Treatment Upcoming Encounters Date Type Department Care Team (Late st Contact Info) Description 11/27/2025 8:30 AM EDT Appointment Radiology Department - [address] [phone] Health Maintenance Due Date Last Done Comments Colorectal Cancer Screening: Colonoscopy 1959 DTaP,Tdap,and Td Vaccines (1 - Tdap) 11/12/1978 Cervical Cancer Screening: Pap Smear 11/12/1980 Pneumococcal Vaccine: 50+ Years (1 of 1 - PCV) 11/12/2009 Zoster Vaccines (1 of 2) 11/12/2009 Cholesterol Screening (Lipid Panel) 07/08/2022 Hepatitis C Screening 07/08/2022 Osteoporosis Screening (Bone Density Screening) 07/08/2022 Social Influencers of Health Screening 07/08/2022 Hypertension/CHF/CAD Annual BMP Blood Test 07/22/2022 Depression Screening 08/06/2024 Falls Risk Assessment 11/12/2024 COVID-19 Vaccine ( season) 2025 05/14/2022, 07/08/2021, 11/21/2020, Additional history exists Influenza Vaccine (#1) 2025 , 09/17/2023, 05/14/2022, Additional history exists Breast Cancer Screening 11/25/2026 11/26/19 25, 2023, 2023, Additional history exists RSV Immunization Adult Patients (1 - 1-dose 75+ series) 11/12/2034 HIB Vaccines Aged Out No longer eligi [...] for breast cancer from Last 3 Months or Most Recently Relevant to Health Maintenance Results * MG Mammo Digital Screening w [...] is recommended in 1 year. Mammo Location: [facility], [address] [place] [address], [id number], . -------- FINAL REPORT -------- Dictated By: Diony José Dictated Date: 11/25/2024 08:51 ET Assigned Physician: Diony José Reviewed and Electronically Signed By: Diony José Signed Date: 11/25/2024 08:54 ET Workstation ID: [id number] Transcribed By: Self Edit Transcribed Date: 11/25/2024 08:51 ET Narrative 11/25/2024 8:54 AM EDT STUDY: Bilateral screening mammography with tomosynthesis and CAD TECHNIQUE: Bilateral full-field digital screening mammography is obtained and read in conjunction with computer-aided detection. Tomosynthesis as well as 2-D C view imaging [...] is recommended in 1 year. Mammo Location: [facility], [address] [place] [address], [id number], . -------- FINAL REPORT -------- Dictated By: Diony José Dictated Date: 11/25/2024 08:51 ET Assigned Physician: Diony José Reviewed and Electronically Signed By: Diony José Signed Date: 11/25/2024 08:54 ET Workstation ID: [id number] Transcribed By: Self Edit Transcribed Date: 11/25/2024 08:51 ET us Rocío Eastman MD IMG BI PROCEDURES Final Resul t from Last 3 Months or Most Recently Relevant to Health Maintenance [place] [address] [place] [address] ([facility]) Care Teams Elastic Tape Inserter Relationship Specialty Start Date End Date Rocío Eastman MD [address] [place] [phone] PCP - General Internal Medicine 01/31/12
[2025-05-07 13:14] LABS: MANUAL DIFF FLAG NO
[2025-05-07 13:26] LABS: Hematocrit 39.6 % (37.0-47.0); Hemoglobin 13.6 g/dl (12.0-16.0); Imm Gran Abs Auto 0.02 X10*3/uL (0.00-0.03); Imm Gran Pct Auto 0.3 % (0.0-0.4); Lymphocytes Absolute Auto 2.4 X10*3/uL (1.2-4.9); Mean Corpuscular HGB Conc 34.3 g/dl (31.0-35.0); Mean Corpuscular Hemoglobin 30.3 pg (27.0-33.0); Mean Corpuscular Volume 88.2 fL (80.0-98.0); NRBC Abs Auto 0.000 X10*3/uL (0.0-0.012); NRBC Pct Auto 0.0 /100WBC (0.0-0.2); Platelet Count 230 X10*3/uL (160-400); Red Blood Count 4.49 X10*6/uL (4.20-5.50); White Blood Count 7.1 X10*3/uL (4.8-10.8)
[2025-05-07 14:03] LABS: Alanine Aminotransferase 47 U/L (0-31); Albumin Level 4.4 g/dL (3.5-5.0); Alkaline Phosphatase 74 U/L (39-117); Anion Gap 10 (12-20); Aspartate Amino Transferase 40 U/L (5-31); Blood Urea Nitrogen 17 mg/dL (9-16); Calcium 9.3 mg/dL (8.4-10.2); Carbon Dioxide 25 mmol/L (22-29); Chloride 108 mmol/L (96-108); Cholesterol 174 mg/dL (<200); Estimated Glomerular Filt Rate > 60; HDL Cholesterol 38 mg/dL (>40); Potassium 4.3 mmol/L (3.3-5.1); Sodium 139 mmol/L (135-145); Total Protein 7.3 g/dL (6.5-8.0); Triglycerides 164 mg/dL (<150)
[2025-05-07 15:19] LABS: Microalbum/Creatinine Ratio Ur 9.0 ug/mg cr (<30)
== END 2025-05-07 09:37 | disposition home or self-care (01) ==
LOC: HO.HMGCLDS 09:36
PROVIDERS: PCP Internal Medicine; Visit Provider Internal Medicine
DX: E11.9 Type 2 diabetes mellitus without complications (principal); E03.9 Hypothyroidism, unspecified; I10 Essential (primary) hypertension; E78.5 Hyperlipidemia, unspecified
CPT/HCPCS: 36415; 80053; 80061; 82043; 82570; 83036; 84443; 85025

== ENCOUNTER 2025-05-12 09:21 | Outpatient (AMB) | payer BC, SELFPAY ==
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
[2025-05-12 09:27] VITALS: BP 128/72; PULSE 80; RESP 18; TEMP 36.9; O2SAT 95; BMI 32.6
--- OUTSIDE RECORDS SUMMARY | 2025-05-12 10:29 | XMS_ITS | Clinical Summary ---
Author Organization [address] Address [address] [place] [address] Phone Care Team Providers Care Shipper Name Role Phone Rocío Eastman MD Primary Care Provider [phone] Medical History Medical History Date Comments HTN [...] 8:30 AM EDT Appointment Radiology Department - [address] [phone] Health Maintenance Due Date Last Done Comments [...] is recommended in 1 year. Mammo Location: [facility], [address] [place] [address], [id number], . -------- FINAL REPORT -------- Dictated By: Diony José Dictated Date: 11/25/2024 08:51 ET Assigned Physician: Diony José Reviewed and Electronically Signed By: Diony José Signed Date: 11/25/2024 08:54 ET Workstation ID: [id number] Transcribed By: Self Edit Transcribed Date: 11/25/2024 [...] is recommended in 1 year. Mammo Location: [facility], [address] [place] [address], [id number], . -------- FINAL REPORT -------- Dictated By: Diony José Dictated Date: 11/25/2024 08:51 ET Assigned Physician: Diony José Reviewed and Electronically Signed By: Diony José Signed Date: 11/25/2024 08:54 ET Workstation ID: [id number] Transcribed By: Self Edit Transcribed Date: 11/25/2024 08:51 ET us Rocío Eastman MD IMG BI PROCEDURES Final Resul t from Last 3 Months or Most Recently Relevant to Health Maintenance [place] [id number] ([facility]) Care Teams Shipper Relationship Specialty Start Date End Date Rocío Eastman MD [address] [place] [phone] PCP - General Internal Medicine 01/31/12
== END 2025-05-12 11:55 | disposition home or self-care (01) ==
LOC: HO.HMCC 09:22
PROVIDERS: PCP Internal Medicine; Visit Provider Internal Medicine
DX: I10 Essential (primary) hypertension (principal); E78.5 Hyperlipidemia, unspecified; E11.9 Type 2 diabetes mellitus without complications